=== PATIENT | female | born 1985 | race Caucasian/White ===

== ENCOUNTER 2024-03-10 05:36 | Day surgery (SDC) | payer SELFPAY, OTHER ==
--- NOTE | 2024-02-22 17:15 | PCM.HP.BLA ---
History and Physical Date of Admission: 03/10/24 HPI: The patient is a 39 year old female presenting for pre-operative visit. She is scheduled for total laparoscopic hysterectomy bilateral salpingectomy and cystoscopy, for menorrhagia and adenomyosis and chronic pelvic pain on 03/10/24. Procedure discussed along with risks, benefits and complications. Other alternatives discussed for management. Consent form signed? Yes. PAST MEDICAL HISTORY PAST MEDICAL HISTORY Diagnosis Date ? Hypoglycemia ? Uterine fibroid 2021 PAST SURGICAL HISTORY PAST SURGICAL HISTORY Procedure Laterality Date ? SECTION HX x3 CURRENT MEDICATIONS Current Outpatient Medications Medication Sig Dispense Refill ? tranexamic acid (LYSTEDA) 650 mg tablet Take 2 tablets by mouth three times a day as needed (heavy menstrual bleeding). 30 tablet 11 No current facility-administered medications for this visit. ALLERGIES: Patient has no known allergies. PERSONAL HISTORY: SOCIAL HISTORY Social History Tobacco Use ? Smoking status: Never ? Smokeless tobacco: Never Vaping Use ? Vaping status: Never Used Substance Use Topics ? Alcohol use: Not Currently ? Drug use: Never FAMILY HISTORY: FAMILY HISTORY History reviewed. No pertinent family history. REVIEW OF SYMPTOMS: GENERAL: denies fevers or chills ENDOCRINOLOGY: has not been on steroids Cardiology : denies palpitations or chest pain Respiratory: denies SOB or cough Hematology: denies history of prolonged bleeding or easy bruising or VTE Allergy: Denies history of personal or family history of allergy to anesthesia PHYSICAL EXAMINATION: VITALS: Blood pressure 116/68, pulse 88, resp. rate 16, height 162.6 cm (5' 4 ), weight 97.1 kg (214 lb), last menstrual period 09/04/2023. GENERAL: The patient is well nourished, well hydrated in no acute distress. , The patient is oriented to time, place, and person. NECK: Supple. No lynphadenopathy, normal thyroid, no thyromegaly. LUNGS: Clear to auscultation bilaterally. no wheezes, rhonchi or rales HEART: Regular rate and rhythm, Normal heart sounds, and No murmurs or gallops Pap and high-risk HPV were negative on 09/13/2023 Endometrial biopsy was benign on 09/13/2023 Pelvic ultrasound on 09/02/2023: Impression A anteverted uterus seen that measures 113 mm x 59 mm x 78 mm. The myometrium is suspicious of adenomyosis but no obvious fibroids are observed. The central endometrium complex measures 10.9 mm in combined thickness. No abnormal blood flow to suggest a polyp or focal endometrial pathology is observed within the endometrial complex. The contour of the endometrial cavity was normal on 3-D imaging. The left ovary is not visualized. The right ovary is normal appearing. Positive slide sign of right adnexa. No adnexal masses were observed. There is no free fluid visualized in the peritoneal cavity. Recommendations Ultrasound findings suggestive for adenomyosis. Clinical correlation is recommended. IMPRESSION: Chronic pelvic pain, adenomyosis and menorrhagia PLAN: The risks/benefits/alternatives and personal involved for the planned total laparoscopic hysterectomy with bilateral salpingectomy and cystoscopy were reviewed with the patient. Her questions were answered to her satisfaction and she desires to proceed. Consent was signed. I reviewed with her postop instructions and expectations. We reviewed that ovaries would remain unless an anticipated pathology arises at time of surgery. Postoperative prescriptions were sent. I have reviewed and updated past medical and surgical history, medications and allergies Assessment & Plan Assessment/Plan (1) Pelvic pain: (2) Adenomyosis: (3) Menorrhagia with regular cycle:
[2024-03-04 11:06] LABS: Internal QC Validated? YES +Cl - CLEAR BKGD; Pregnancy, Urine Negative Negative
[2024-03-10] VITALS (14 sets, daily range): BP systolic 114–136; BP diastolic 71–80; PULSE 78–95; RESP 16–18; TEMP 36.3–37; O2SAT 96–100; BMI 37.8
--- OUTSIDE RECORDS SUMMARY | 2024-03-10 05:38 | XMS RPT_ITS | CCD ---
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 Primary Care Unavailab KIERSTEN Stroud NP Attending Unavailab KYLEE Ireland Consulting Unavailable KIERSTEN MORALES NP Admitting Unavailab le PROVIDER, UNKNOWN Consulting Unavailable PROVIDER, UNKNOWN Consulting Unavailable PROVIDER, UNKNOWN Consulting Unavailable KYLEE MENDOZA MD Unavailable Michela Horn Unavailable Unavailable BERLIN Unavailable Unavailable OBGYN, GENERAL Unavailable Unavailable JUSTINA ARECHIGA, JORGE Unavailable HARDY MENDOZA MD Unavailable Jena AGUILLON, Margie Unavailable Unavailable MAGGI ARECHIGA, DIAMANTE Hwang Unavailable [phone] KIERSTEN ELLER Unavailable Leo HORN MD Unavailable NEETU RUIZ Unavailable Unavailable ARY GEORGE Unavailable Unavailable NICKY ARECHIGA, RISHI Harrington Unavailable [phone] Jaiden AGUILLON, Rufina Unavailable Unavaila ble Unavailable Unavailable Kiersten Morales CNP Unavailable FRANCISCO EARLY Attending Unavailable FRANCISCO EARLY Referring Unavailable FRANCISCO EARLY Attending Unavailable FRANCISCO EARLY Referring Unavailable KIERSTEN MORALES Referring Corrina vailable FRANCISCO EARLY Attending Unavailable Medications Current Medications Medication Drug Class(es) Dates Sig (Normalized) Sig (Original) ibuprofen 600 mg oral tablet (1 source) Nonsteroidal Anti-inflammatory Drug Start: 02-22-2024 take 1 tablet by mouth every six hours as needed ibuprofen (MOTRIN) 600 mg tablet Take 1 tablet by mouth every 6 hours as needed for pain. FOR PAIN. 40 tablet 1 02/22/2024 Active ondansetron 4 mg oral tablet (6 sources) Serotonin-3 Receptor Antagonist Start: 02-22-2024 take 1 tablet by mouth every eight hours as needed ondansetron (ZOFRAN) 4 mg tablet Take 1 tablet by mouth every 8 hours as needed for nausea/vomiting. 20 tablet 02/22/2024 Active Start: 01-15-2014 End: 01-22-2014 ZOFRAN ODT, 4MG (Oral Tablet Dispersible) ; 1 (one) Tablet 1 tablet sublingual every 6 hours as needed for na for 7 days Quantity: 10 {Tablet} Refills: 0 Ordered: 15-Jan-2014 MD Leo HORN Start: 15-Jan-2014 End: 22-Jan-2014 Status: Inactive Comments: Medication taken as needed. Comment on above: Medication taken as needed. oxyCODONE hydrochloride 5 mg oral tablet (1 source) Opioid Agonist Start: End: take 1 tablet by mouth every eight hours as needed for pain oxyCODONE IR (ROXICODONE) 5 mg immediate release tablet Indications: Postoperative pain Take 1 tablet by mouth every 8 hours as needed for pain for up to 5 days. 8 tablet 02/22/2024 02/27/2024 Active tranexamic acid 650 mg oral tablet (4 sources) Antifibrinolytic Agent Start: take 2 tablets by mouth every eight hours as needed tranexamic acid (LYSTEDA) 650 mg tablet Take 2 tablets by mouth three times a day as needed (heavy menstrual bleeding). 30 tablet 11 09/13/2023 Active Completed/Discontinued Medications Medication Drug Class(es) Dates Sig (Normalized) Sig (Original) ALPRAZolam 0.5 mg oral tablet (5 sources) Benzodiazepine Start: 01-12-2014 End: 01-17-2014 take 1-2 tablets by mouth once daily as needed XANAX, 0.5MG (Oral Tablet) ; 1-2 Tablet Tablet daily as needed for 10 days Quantity: 10 {Tablet} Refills: 1 Ordered: 17-Jan-2014 MD Leo HORN Start: 12-Jan-2014 End: 17-Jan-2014 Status: Inactive Comments: Medication taken as needed. Comment on above: Medication taken as needed. amoxicillin 500 mg oral capsule (5 sources) Penicillin-class Antibacterial Start: 07-24-2019 End: 08-03-2019 take 1 tablet by mouth three times daily Amoxicillin 500 MG Oral Capsule ; 1 (one) Tablet Tablet three times daily for 10 days Quantity: 30 {Capsule} Refills: 0 Ordered: 21-Sep-2019 HENNA Hwang Start: 24-Jul-2019 End: 03-Aug-2019 Status: Inactive Comments: medication to be dispensed in office Comment on above: medication to be dis pensed in office amoxicillin 875 mg / clavulanate 125 mg oral tablet (5 sources) Penicillin-class Antibacterial Start: 01-22-2012 End: 01-29-2012 take 1 tablet by mouth twice daily AUGMENTIN, 875-125MG (Oral Tablet) ; 1 (one) Tablet two times daily for 7 days Quantity: 14 {Tablet} Refills: 0 Ordered: 14-Jun-2012 MD RISHI SAUNDERS Start: 22-Jan-2012 End: 29-Jan-2012 Status: Inactive azithromycin 250 mg oral tablet (5 sources) Macrolide Antimicrobial Start: 03-22-2010 End: 07-18-2010 AZITHROMYCIN, 250MG (Oral Tablet) ; 1 Tablet daily for 0 days Quantity: 6 {Tablet} Refills: 0 Ordered: 18-Jul-2010 HENNA Bella Start: 22-Mar-2010 End: 18-Jul-2010 Status: Inactive Comments: take two tablets day one and then one tablet daily for 4 days Comment on above: take two tablets day one and then one tablet daily for 4 days cephalexin 500 mg oral capsule (5 sources) Cephalosporin Antibacterial Start: 09-02-2021 End: 03-12-2022 take 1 capsule by mouth four times daily Cephalexin 500 MG Oral Capsule ; 1 (one) Capsule four times daily for 0 days Quantity: 40 {Capsule} Refills: 0 Ordered: 12-Mar-2022 HENNA Hwang Start: 02-Sep-2021 End: 12-Mar-2022 Status: Inactive Comments: medication to be dispensed in office Comment on above: medication to be dis pensed in office clonazePAM 0.5 mg oral tablet (5 sources) Benzodiazepine Start: 08-20-2014 End: 07-24-2019 KlonoPIN 0.5 MG Oral Tablet ; 1 (one) Tablet Tablet prn anxiety during periods. for 0 days Quantity: 90 {Tablet} Refills: 0 Ordered: 24-Jul-2019 HENNA Hwang Start: 20-Aug-2014 End: 24-Jul-2019 Status: Inactive dextromethorphan hydrobromide 2 mg/ml / guaiFENesin 20 mg/ml oral solution (5 sources) Uncompetitive W-whzqpn-S-aspartat e Receptor Antagonist, Sigma-1 Agonist Start: 07-27-2019 End: 08-15-2021 take 5 mL by mouth every four to six hours as needed guaiFENesin-DM 100-10 MG/5ML Oral Syrup ; 5 Milliliter every 4-6 hours as needed for cough for 0 days Quantity: 120 {Milliliter} Refills: 0 Ordered: 15-Aug-2021 HENNA Bella Start: 27-Jul-2019 End: 15-Aug-2021 Status: Inactive Comments: Medication taken as needed. medication to be dispensed in office Comment on above: Medication taken as needed. medication to be dispensed in office meclizine hydrochloride 25 mg oral tablet (5 sources) Antiemetic Start: 07-19-2015 End: 07-24-2019 take 1 tablet by mouth three times daily as needed, then take 2 tablets by mouth three times daily as needed Meclizine HCl 25 MG Oral Tablet ; one Tab three times a day, as needed for 7 days Quantity: 21 {Tablet} Refills: 2 Ordered: 24-Jul-2019 HENNA Hwang Start: 19-Jul-2015 End: 24-Jul-2019 Status: Inactive Comments: Medication taken as needed. may increase or decrease dose as needed up to 2 pills three times a day. Comment on above: Medication taken as needed. may increase or decrease dose as needed up to 2 pills three times a day. norethindrone acetate 5 mg oral tablet (4 sources) Start: 08-18-2023 End: 01-07-2024 take 0.5 tablet by mouth once daily norethindrone (AYGESTIN) 5 mg tablet Take 0.5 tablets by mouth once daily. 15 tablet 1 08/18/2023 01/07/2024 Discontinued Comment on above: Take 0.5 tablets by mouth once daily. sertraline 25 mg oral tablet (5 sources) Serotonin Reuptake Inhibitor Start: 01-17-2014 End: 08-20-2014 take 1 tablet by mouth once daily SERTRALINE HCL, 25MG (Oral Tablet) ; 1 (one) Tablet Tablet daily for 30 days Quantity: 30 {Tablet} Refills: 3 Ordered: 20-Aug-2014 HENNA Hwang Start: 17-Jan-2014 End: 20-Aug-2014 Status: Inactive Problems Active Problems Problem Classification Problem Date Documented Da te Episodic/Chronic Acute bronchitis (5 sources) Acute bronchitis 03-22-2010 Episodic Administrative/social admission (11 sources) Patient encounter status; Translations: [Counseling, unspecified] 07-23-2023 Episodic Anxiety disorders (20 sources) Anxiety attack ; Translations: [Panic disorder [episodic paroxysmal anxiety]] 08-20-2014 Chronic Benign neoplasm of uterus (15 sources) Uterine leiomyoma; Translations: [Leiomyoma of uterus, unspecified] 07-23-2023 Episodic Comment on above: noted on CT, not on US at OB office Conditions associated with dizziness or vertigo (10 sources) Vestibular nerve disorder; 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, unspecified ear] 07-19-2015 Episodic Endometriosis (1 source) Uterine adenomyosis; Translations: [Adenomyosis] 02-22-2024 Chronic Heart valve disorders (5 sources) Mitral valve prolapse 01-15-2014 Chronic Immunizations and screening for infectious disease (6 sources) Requires diphtheria, tetanus and pertussis vaccination; Translations: [Encounter for immunization] 01-22-2012 Episodic Menstrual disorders (9 sources) Dysmenorrhea; Translations: [Dysmenorrhea, unspecified] Onset: 09-02-2023 07-18-2010 Chronic Open wounds of extremities (5 sources) Open wound of foot; Translations: [Unspecified open wound, unspecified foot, initial encounter] 01-22-2012 Episodic Other female genital disorders (5 sources) Vaginal bleeding; Translations: [Abnormal uterine and vaginal bleeding, unspecified] 07-18-2010 Chronic Other gastrointestinal disorders (1 source) Constipation, unspecified; Translations: [Constipation, unspecified] Onset: 03-13-2022 Episodic Other gastrointestinal disorders (10 sources) Acute constipation; Translations: [Constipation, unspecified] 03-13-2022 Episodic Other injuries and conditions due to external causes (10 sources) Local infection of wound; Translations: [Other injury of unspecified body region, initial encounter] 03-12-2022 Episodic Other nervous system disorders (1 source) Other chronic pain; Translations: [Chronic pelvic pain in female] Onset: 09-02-2023 Chronic Other nervous system disorders (1 source) Postoperative pain ; Translations: [Other acute postprocedural pain] 02-22-2024 Episodic Other screening for suspected conditions (not mental disorders or infectious disease) (1 source) Abnormal findings on diagnostic imaging of other specified body structures; Translations: [Abnormal findings on diagnostic imaging of other specified body structures] Onset: 03-13-2022 Chronic Other skin disorders (15 sources) Multiple skin tags; Translations: [Other hypertrophic disorders of the skin] 03-12-2022 Episodic Other upper respiratory infections (5 sources) Acute bacterial pharyngitis; Translations: [Acute pharyngitis due to other specified organisms] 07-24-2019 Episodic Residual codes; unclassified (5 sources) Viral syndrome; Translations: [Other general symptoms and signs] 07-27-2019 Episodic Skin and subcutaneous tissue infections (10 sources) Cellulitis and abscess of lower limb; Translations: [Cellulitis of unspecified part of limb] 01-26-2012 Episodic Superficial injury; contusion (5 sources) Foreign body of foot; Translations: [Superficial foreign body, unspecified foot, initial encounter] 01-22-2012 Episodic Unclassified (5 sources) Abdominal Pain, Female - Symptoms include abdominal pain, while symptoms do not include nausea, vomiting or diarrhea. The pain is located in the left lower quadrant. The pain radiates to the left flank. Onset was 18 month(s) ago (intermittent). Associated symptoms do not include anorexia, weight loss, jaundice or hematuria. Note for Abdominal pain : C/O constipation and some blood when constipated. See US and CT Results from 2021. 07-23-2023 Past or Other Problems Problem Classification Problem Date Documented Date Episodic/Chronic Abdominal pain (20 sources) Left lower quadrant pain; Translations: [Chronic pelvic pain of female] Onset: 03-13-2022 Episodic Deficiency and other anemia (5 sources) Deficiency and other anemia 07-19-2010 Unclassified (5 sources) !Patient notification of lab results - LAVERN Das. The test(s) that you had done were/was a CT scan. Your tests showed the following abnormalities: concern for fibroids and a large amount of stool . You should call our office to schedule a referral and if you have any questions. Please follow up as scheduled. Note for !Patient notification of lab results : Based on your CT, I would first clear your constipation. If this doesn't help, I would suggest going to [facility] for the concern for fibroids. These are non-cancerous tumors but they can cause discomfort and sometimes need removed. For the constipation I suggest miralax or warmed prune juice. Thanks! 03-13-2022 Unclassified (5 sources) Abdominal Pain, Female - Symptoms include abdominal pain, while symptoms do not include nausea, vomiting, diarrhea or vaginal bleeding. The pain is located in the left lower quadrant. The pain radiates to the back. The patient describes the pain as dull. Onset was week(s) ago. Onset followed none (pt has history of C Sections). The symptoms occur frequently. Symptoms are exacerbated by eating. Associated symptoms do not include fever, anorexia or dysuria. 03-12-2022 Unclassified (5 sources) Skin lesion - Note for Skin lesion : Pt. had a skin tag removed from under her right arm 5 days ago. It is painful and still oozing a bit on the bandaid. She is here to follow up. 09-02-2021 Unclassified (5 sources) Skin lesion - The skin lesion is located on the face (left eyelid) and the trunk (right armpit). 08-29-2021 Unclassified (5 sources) Skin lesion - The skin lesion appeared gradually and has been occurring for years. The skin lesion is characterized as raised above the skin. The skin lesion is located on the face (left eyelid). Note for Skin lesion : And one in the right axilla. 08-15-2021 Unclassified (5 sources) !Patient notification of lab results - Dr. Mendoza. The test(s) that you had done were/was a CBC (checks for anemia and infection) (The results are suggestive of a viral infection. I advise rest and fluids. Please let us know how you are doing by next week.). You should call our office if you have any questions. 07-28-2019 Unclassified (5 sources) Cough - The onset of the cough has been acute and has been occurring in a persistent pattern for days. The course has been constant. The cough is characterized as dry. The symptoms have been associated with body aches and sore throat (improved). Note for Cough : seen 07-24-19 and treated with Amoxicillin. Sorethroat improving. c/o increased weakness and decreased appetite. 07-27-2019 Unclassified (5 sources) Sore throat - The onset of the sore throat has been acute and has been occurring for weeks (3 weeks but worse x 2 days.). The course has been worsening. The symptoms have been associated with change in voice and cough (slight). 07-24-2019 Unclassified (5 sources) Vomiting - Symptoms include vomiting. Onset was 3 hour(s) ago. Associated symptoms include weakness. Note for Vomiting : pt gets low sugars at times. Today in office 107. 07-19-2015 Unclassified (5 sources) Dizziness - The onset of the dizziness has been acute and has been occurring for 1 month (worse last couple days. Pt having period now.). The symptoms have been associated with headache and nausea. Note for Dizziness : worries about low sugar. Drinking orange juice helps but gives her a stomachache. Today sugar is 93. Pt has been treated for anxiety/depression in the past with zoloft without help.. 08-20-2014 Unclassified (5 sources) recheck - other illness (anxiety. On Zoloft daily and Klonopin 1/2 tab bid.). Note for recheck : Last visit 2 weeks ago. 01-26-2014 Unclassified (2 sources) Transition into care - The patient is transitioning into care from an emergency room ([facility]) . 01-15-2014 Unclassified (2 sources) [ADDITIONAL REASON] Abdominal pain - Note for Abdominal pain : Continues with Abd pain and nausea. Was in ER yesterday - See ER record. concerned about Results of CT 01-15-2014 Unclassified (5 sources) !Patient notification of lab results 1 - Justina. Note for !Patient notification of lab results 1 : Racheal, your labs look good. 01-14-2014 Unclassified (5 sources) Muscle twitching - Pt c/o muscle twitching and chest tightness. She said she has felt it before. It happened last night. She also felt sick to her stomach after the episode. She denies any pain. 01-12-2014 Unclassified (5 sources) Injury - The date of the injury was on 01/21/12. The injury is described as being located in the foot (left). Note for Injury : drain placed on 01/22/12. Pt feeling good. 01-26-2012 Unclassified (5 sources) LACERATION - The injury occurred on - Date: 01-21-12. The occurrence was sudden following an incident at home (stepped on cut off quezada.) . The patient's tetanus immunization is not up to date, and the date of most recent tetanus booster is .. Note for Laceration : laceration on arch of right foot. 01-22-2012 Unclassified (5 sources) Vaginal bleeding - The bleeding has been occurring for 4 days. Note for Vaginal bleeding : MENSES WAS LATE WITH CLOTS. CONCERNED ABOUT BEING . HAS A NEG BLOOD 07-18-2010 Unclassified (5 sources) Ear pain - The pain has been occurring in an intermittent pattern for 5 days. The course has been constant. The pain is felt in the right ear. The symptoms have been associated with chills, fever, sinus problems (rhin clear small cough, dry) and sore throat, while the symptoms have not been associated with decreased hearing (sounds loud). 03-22-2010 Unclassified (3 sources) Abdominal pain - Note for Abdominal pain : Continues with Abd pain and nausea. Was in ER yesterday - See ER record. concerned about Results of CT 01-15-2014 Unclassified (3 sources) [ADDITIONAL REASON] Transition into care - The patient is transitioning into care from an emergency room ([facility]) . 01-15-2014 Results Test Name Value Interpretation Reference Range Facility [facility] 02-22-2024 CNOV Office Visit (OBGYWM) RACHEAL URBAN ([id number]) 1985 F Date Time Provider Department 02/22/24 2:50 PM FRANCISCO EARLY OBGYWM During your visit today, we recorded the following information about you: Pulse Respiration Blood pressure Weight 88/minute 16/minute 116/68 97.1 kg Height 1.626 m Francisco Early MD 02/22/2024 5:15 PM Signed Pre-Op History and Physical HPI: The patient is a 39 year old female presenting for pre-operative visit. She is scheduled for total laparoscopic hysterectomy bilateral salpingectomy and cystoscopy, for menorrhagia and adenomyosis and chronic pelvic pain on 03/10/24. Procedure discussed along with risks, benefits and complications. Other alternatives discussed for management. Consent form signed? Yes. PAST MEDICAL HISTORY Diagnosis Date Hypoglycemia Uterine fibroid 2021 PAST SURGICAL HISTORY Procedure Laterality Date SECTION HX x3 Current Outpatient Medications Medication Sig Dispense Refill tranexamic acid (LYSTEDA) 650 mg tablet Take 2 tablets by mouth three times a day as needed (heavy menstrual bleeding). 30 tablet 11 No current facility-administere d medications for this visit. ALLERGIES: Patient has no known allergies. PERSONAL HISTORY: Social History Tobacco Use Smoking status: Never Smokeless tobacco: Never Vaping Use Vaping status: Never Used Substance Use Topics Alcohol use: Not Currently Drug use: Never FAMILY HISTORY: History reviewed. No pertinent family history. REVIEW OF SYMPTOMS: GENERAL: denies fevers or chills ENDOCRINOLOGY: has not been on steroids Cardiology : denies palpitations or chest pain Respiratory: denies SOB or cough Hematology: denies history of prolonged bleeding or easy bruising or VTE Allergy: Denies history of personal or family history of allergy to anesthesia PHYSICAL EXAMINATION: VITALS: Blood pressure 116/68, pulse 88, resp. rate 16, height 162.6 cm (5' 4 ), weight 97.1 kg (214 lb), last menstrual period 09/04/2023. GENERAL: The patient is well nourished, well hydrated in no acute distress. , The patient is oriented to time, place, and person. NECK: Supple. No lynphadenopathy, normal thyroid, no thyromegaly. LUNGS: Clear to auscultation bilaterally. no wheezes, rhonchi or rales HEART: Regular rate and rhythm, Normal heart sounds, and No murmurs or gallops Pap and high-risk HPV were negative on 09/13/2023 Endometrial biopsy was benign on 09/13/2023 Pelvic ultrasound on 09/02/2023: Impression A anteverted uterus seen that measures 113 mm x 59 mm x 78 mm. The myometrium is suspicious of adenomyosis but no obvious fibroids are observed. The central endometrium complex measures 10.9 mm in combined thickness. No abnormal blood flow to suggest a polyp or focal endometrial pathology is observed within the endometrial complex. The contour of the endometrial cavity was normal on 3-D imaging. The left ovary is not visualized. The right ovary is normal appearing. Positive slide sign of right adnexa. No adnexal masses were observed. There is no free fluid visualized in the peritoneal cavity. Recommendations Ultrasound findings suggestive for adenomyosis. Clinical correlation is recommended. IMPRESSION: Chronic pelvic pain, adenomyosis and menorrhagia PLAN: The risks/benefits/alter natives and personal involved for the planned total laparoscopic hysterectomy with bilateral salpingectomy and cystoscopy were reviewed with the patient. Her questions were answered to her satisfaction and she desires to proceed. Consent was signed. I reviewed with her postop instructions and expectations. We reviewed that ovaries would remain unless an anticipated pathology arises at time of surgery. Postoperative prescriptions were sent. I have reviewed and updated past medical and surgical history, medications and allergies Francisco Early M.D. Francisco Early MD 02/22/2024 5:15 PM Signed Racheal Urban is a 39 year old female who presents for problem visit for AUB. HPI: 39-year-old female who is completed childbearing presents today complaining of abnormal uterine bleeding. She states her last 2 menses have not been as heavy. She does have some cramping with her menses. OB History T3 L3 SAB3 IAB0 Ectopic0 Multiple0 Live Births3 Thermostat Machine Tender History LMP: 09/04/2023 (Exact Date), Having periods Age at Menarche: Age at First : Age at Menopause: Thermostat Machine Tender History Comments: Sexual Activity: Yes; Male Contraception: No contraception data on record PAST MEDICAL HISTORY Diagnosis Date Hypoglycemia Uterine fibroid 2021 PAST SURGICAL HISTORY Procedure Laterality Date SECTION HX x3 History reviewed. No pertinent family history. Social History Tobacco Use Smoking status: Never Smokeless tobacco: Never Vaping Use Vaping status: Never Used Sub (more content not included)... [facility] HIST[facility] PHYSICALon 4 HISTORY PHYSICAL HNO ID: [id number] Author: FRANCISCO EARLY MD Service: ? Author Type: Physician Type: H&P Filed: 02/22/2024 17:15 Note Text: Pre-Op History and Physical HPI: The patient is a 39 year old female presenting for pre-operative visit. She is scheduled for total laparoscopic hysterectomy bilateral salpingectomy and cystoscopy, for menorrhagia and adenomyosis and chronic pelvic pain on 03/10/24. Procedure discussed along with risks, benefits and complications. Other alternatives discussed for management. Consent form signed? Yes. PAST MEDICAL HISTORY Diagnosis Date Hypoglycemia Uterine fibroid 2021 PAST SURGICAL HISTORY Procedure Laterality Date SECTION HX x3 Current Outpatient Medications Medication Sig Dispense Refill tranexamic acid (LYSTEDA) 650 mg tablet Take 2 tablets by mouth three times a day as needed (heavy menstrual bleeding). 30 tablet 11 No current facility-administere d medications for this visit. ALLERGIES: Patient has no known allergies. PERSONAL HISTORY: Social History Tobacco Use Smoking status: Never Smokeless tobacco: Never Vaping Use Vaping status: Never Used Substance Use Topics Alcohol use: Not Currently Drug use: Never FAMILY HISTORY: History reviewed. No pertinent family history. REVIEW OF SYMPTOMS: GENERAL: denies fevers or chills ENDOCRINOLOGY: has not been on steroids Cardiology : denies palpitations or chest pain Respiratory: denies SOB or cough Hematology: denies history of prolonged bleeding or easy bruising or VTE Allergy: Denies history of personal or family history of allergy to anesthesia PHYSICAL EXAMINATION: VITALS: Blood pressure 116/68, pulse 88, resp. rate 16, height 162.6 cm (5' 4 ), weight 97.1 kg (214 lb), last menstrual period 09/04/2023. GENERAL: The patient is well nourished, well hydrated in no acute distress. , The patient is oriented to time, place, and person. NECK: Supple. No lynphadenopathy, normal thyroid, no thyromegaly. LUNGS: Clear to auscultation bilaterally. no wheezes, rhonchi or rales HEART: Regular rate and rhythm, Normal heart sounds, and No murmurs or gallops Pap and high-risk HPV were negative on 09/13/2023 Endometrial biopsy was benign on 09/13/2023 Pelvic ultrasound on 09/02/2023: Impression A anteverted uterus seen that measures 113 mm x 59 mm x 78 mm. The myometrium is suspicious of adenomyosis but no obvious fibroids are observed. The central endometrium complex measures 10.9 mm in combined thickness. No abnormal blood flow to suggest a polyp or focal endometrial pathology is observed within the endometrial complex. The contour of the endometrial cavity was normal on 3-D imaging. The left ovary is not visualized. The right ovary is normal appearing. Positive slide sign of right adnexa. No adnexal masses were observed. There is no free fluid visualized in the peritoneal cavity. Recommendations Ultrasound findings suggestive for adenomyosis. Clinical correlation is recommended. IMPRESSION: Chronic pelvic pain, adenomyosis and menorrhagia PLAN: The risks/benefits/alter natives and personal involved for the planned total laparoscopic hysterectomy with bilateral salpingectomy and cystoscopy were reviewed with the patient. Her questions were answered to her satisfaction and she desires to proceed. Consent was signed. I reviewed with her postop instructions and expectations. We reviewed that ovaries would remain unless an anticipated pathology arises at time of surgery. Postoperative prescriptions were sent. I have reviewed and updated past medical and surgical history, medications and allergies Francisco Early M.D. [facility] RACHEAL URBAN ([id number]) 1985 F Date Time Provider Department 01/05/24 FRANCISCO EARLY OBGYWM During your visit today, we recorded the following information about you: Kailyn Molina 01/05/2024 4:39 PM Signed Pt called ready to schedule her hysterectomy for sometime in February with Dr. Early. Arianna Stover RN 01/05/2024 4:49 PM Signed Patient will need a surgery sheet. See previous phone note on 09/21/23. HENNA Oshea Rebecca L, MD 01/07/2024 11:47 AM Signed NEed surgery sheet. MD Jolanta Aviles Lindsey, RN 01/07/2024 12:01 PM Signed Surgery sheet to provider to fill out. HENNA Oshea Rebecca L, MD 01/07/2024 1:33 PM Signed completed. MD Jolanta Aviles Lindsey, RN 01/07/2024 1:49 PM Signed Surgery sheet to outpatient scheduler. Arianna Stover RN Allergies As of Date: 01/05/2024 (No Known Allergies) Date Reviewed: 09/13/2023 Reviewed by: Josie Alfred MA - Fully Assessed Reason for Visit: schedule procedure [Other] Prescriptions as of 01/07/2024 - tranexamic acid (LYSTEDA) 650 mg tablet Take 2 tablets by mouth three times a day as needed (heavy menstrual bleeding). Problem List As Of Date: 01/05/2024 (None) Medications Discontinued During This Encounter Prescriptions - norethindrone (AYGESTIN) 5 mg tablet (Discontinued) Reported on 09/13/2023 Encounter Status:Closed by [facility]07[facility]OB[facility]WM[facility] RACHEAL URBAN ([id number]) 1985 F Date Time Provider Department 09/21/23 FRANCISCO EARLY OBGYWM During your visit today, we recorded the following information about you: Rosalind Estevez 09/21/2023 4:58 PM Signed Patient called for status update on biopsy results. Please contact patient to review. Janine Mir RN 09/21/2023 5:00 PM Signed Patient had EMB 09/12. Pap/HPV still in process. HENNA Mills Rebecca L, MD 09/22/2023 9:22 AM Signed Biopsy benign. I was waiting for the pap to call her. We will contact her if anything comes back abnormal> Has she decided how she would like to proceed (surgery or try TXA and monitor for now? ) MD Clarke Aviles Trisha, RN 09/22/2023 10:04 AM Signed Left message for patient to call office. HENNA Mills Jennifer, RN 09/22/2023 12:00 PM Signed Patient notified. She would like to proceed with surgery, but not until the week of February. Do you want a surgery sheet this far in advance? HENNA Quevedo Rebecca L, MD 09/22/2023 12:07 PM Signed Tell her to call back mid December to request to have it scheduled in Feb. Thanks! Francisco Early MD Allergies As of Date: 09/21/2023 (No Known Allergies) Date Reviewed: 09/13/2023 Reviewed by: Josie Alfred MA - Fully Assessed Reason for Visit: Results [95] Prescriptions as of 09/22/2023 - tranexamic acid (LYSTEDA) 650 mg tablet Take 2 tablets by mouth three times a day as needed (heavy menstrual bleeding). - norethindrone (AYGESTIN) 5 mg tablet Take 0.5 tablets by mouth once daily. Problem List As Of Date: 09/21/2023 (None) Encounter Status:Closed by KAILYN LOPES on 09/22/23 [facility] CNOVon 09-13-2023 CNOV Office Visit (OBGYWM) RACHEAL URBAN ([id number]) 1985 F Date Time Provider Department 09/13/23 11:10 AM FRANCISCO EARLY OBGYWM During your visit today, we recorded the following information about you: Blood pressure Weight Last Period 132/78 97.1 kg 09/04/23 Francisco Early MD 09/13/2023 12:16 PM Signed Racheal Urban is a 38 year old female who presents for problem visit for f/u AUB. Last menses was heavy and crampy, last 2 before that were better. Didn't take the progestin- norethindrone b/c taking a natural progestin supplement. The 2nd day fo this last 5 day menses was the worst. Didn't take any medication. She states the pain is not the main concern last 3 months. More the heavy bleeding. 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 Social History Tobacco Use Smoking status: Never Smokeless tobacco: Never Vaping Use Vaping Use: Never used Substance Use Topics Alcohol use: Not Currently Drug use: Never Current Outpatient Medications Medication Sig norethindrone (AYGESTIN) 5 mg tablet Take 0.5 tablets by mouth once daily. (Patient not taking: Reported on 09/13/2023) No current facility-administere d medications for this visit. Allergies As of Date: 09/13/2023 (No Known Allergies) Fully Assessed 09/13/2023 REVIEW OF SYSTEMS Abdomen: No bloating, early satiety, indigestion, or increased flatulence. No abdominal pain, nausea, vomiting, diarrhea, or constipation. Bladder: No dysuria, gross hematuria, urinary frequency, urinary urgency, or incontinence. Allergies and current medication updated:Yes EXAM: BP 132/78 Wt 214 lb (97.1kg) LMP 09/04/2023 GENERAL: pleasant, female in no apparent distress PELVIC: external genitalia normal, normal Bartholin's glands, urethra, Biehle's glands, no vulvar lesions, no cervical lesions, good vaginal support, physiologic discharge present, normal appearing perineal body and perianal region BIMANUAL: uterus normal size, shape and consistency, no adnexal masses, and boggy, mildly tender ASSESSMENT AND PLAN: Encounter Diagnosis ICD-10-CM 1. Menorrhagia with regular cycle N92.0 Adenomyosis- d/w her options. She is opposed to IUD and not interested in this at all. Not a good candidate for ablation due to pain and known adenomyosis. D/w her r/b/a to hysterectomy and that may not improve pain. Does not want hormones. D/w her could consider tranexamic acid. Desires to proced w/ EMB today and wants to consider other options. pap done as well today as hasn't been updated recently Would be TLH, bilateral salpingectomy and cystoscopy. Francisco Early MD Racheal is a 38 year old who presents today for an endometrial biopsy for abnormal uterine bleeding. test: negative UNIVERSAL PROTOCOL / SAFETY CHECKLIST Procedure to be Performed: EMB Sign In: A Moment of CARE was completed. Personnel directly involved with the procedure wore the appropriate PPE (Personal Protective Equipment). Patient/Surrogate Stated/Verified: PATIENT VERIFIED(optional for EMERGENT procedures): Patient name, Date of , Relevant allergies, and The intended procedure Time Out Communication: Intended patient and procedure match the source documents. Consent documented and matches the intended procedure. Relevant labs, photos, and/or imaging studies have been reviewed. No implant(s) inserted. Sign Out: SIGN OUT (optional for EMERGENT procedures): All specimen containers correctly labeled. All instruments, equipment, possible retained foreign bodies accounted for. Post-procedure follow-up management communicated and Plan of Care Visit completed when applicable. Francisco Early M.D. PROCEDURE: BIOPSY: Speculum placed into the vagina with excellent visualization of the cervix. Cervix cleaned with betadine. Anterior lip of cervix grasped with single toothed tenaculum. Uterus sounded to 9 cm. Pipelle inserted into the uterus without difficulty and endometrial biopsy obtained. Specimen labeled and sent to pathology. Procedure Summary: Patient tolerated procedure well. ASSESSMENT: abnormal uterine bleeding PLAN: Specimens labeled and sent to Pathology. Will notify patient of results in 1-2 weeks. Post-procedure instructions reviewed and written material given to the patient. Ok to leave message at given phone number for her to call us for results. MD Aubrie Aviles Tabatha, MA (more content not included)... Normal [facility] HIGH RISK HUMAN PAPILLOMA BONIFACIO (HPV), PCR FOR DETECTION AND GENOTYPINGon 09-13-2023 HPV 16 Ag Ql (Unsp spec) Negative Normal Negative for HPV DNA high risk type 16 by PCR [facility] Comment on above: Order Comment: Speci men Type: FLUID SPECIMENOrdering Facility: [facility] Address: [address] [place] [address] Performed By: #### L [id number], HPVHRT ####[facility] LAB[facility] [id number] [place] [address] [place] HPV 18 Ag Ql (Unsp spec) Negative Normal Negative for HPV DNA high risk type 18 by PCR [facility] Comment on above: Order Comment: Speci men Type: FLUID SPECIMENOrdering Facility: [facility] Address: [address] [place] [address] Performed By: #### L [id number], HPVHRT ####[facility] [id number] [place] [address] [place] HPV 31+33+35+39+45+51+52+56 +58+59+66+68 DNA MARCIA+probe Ql (Cvx) Negative for HPV DNA high risk types: 31,33,35,39,45,51,52 ,56,58,59,66,68 by PCR. Normal Negative for HPV DNA high risk types: 31,33,35,39,4 5,51,52,56,58 ,59,66,68 by PCR. [facility] Comment on above: Order Comment: Speci men Type: FLUID SPECIMENOrdering Facility: [facility] Address: [address] [place] [address] Performed By: #### L [id number], HPVHRT ####[facility] [id number] [place] [address] [place] PAP TESTon 09-13-2023 ADEQUACY Satisfactory for interpretation. Normal [facility] Comment on above: Order Comment: Speci men Type: FLUID SPECIMENOrdering Facility: [facility] Address: [address] [place] [address] Performed By: #### L [id number], HPVHRT ####[facility] [id number] [address] [address] [place] CLINICAL HISTORY, CYTOLOGY, LIBERAL ARTS AND HUMANITIES CHAIR Routine Exam Normal [facility] Comment on above: Order Comment: Speci men Type: FLUID SPECIMENOrdering Facility: [facility] Address: [address] [place] [address] Performed By: #### L [id number], HPVHRT ####[facility]IA [id number] [place] [id number] [place] HPV REFLEX Yes HPV [facility] Comment on above: Order Comment: Speci men Type: FLUID SPECIMENOrdering Facility: [facility] Address: [address] [place] [address] Performed By: #### L [id number], HPVHRT ####[facility] [id number] [place] [address] [place] INTERPRETATION, CYTOLOGY, LIBERAL ARTS AND HUMANITIES CHAIR Normal [facility] Comment on above: Order Comment: Speci men Type: FLUID SPECIMENOrdering Facility: [facility] Address: [address] [place] [address] Result Comment: Nega tive for intraepithelial lesion or malignancy. Performed By: #### L [id number], HPVHRT ####[facility] [id number] [place] [address] [place] LMP 09/04/2023 [facility] Comment on above: Order Comment: Speci men Type: FLUID SPECIMENOrdering Facility: [facility] Address: [address] [place] [address] Performed By: #### L [id number], HPVHRT ####[facility] [id number] [place] [id number] [place] PAP DISCLAIMER COMMENT The Pap Smear is a screening test for cervical cancer. False negative results occur with all screening tests, emphasizing the need for rescreening at recommended intervals, and clinical correlation. Normal [facility] Comment on above: Order Comment: Speci men Type: FLUID SPECIMENOrdering Facility: [facility] Address: [address] [place] [address] Performed By: #### L [id number], HPVHRT ####[facility] [id number] [place] PAP VIDEO GAME PROGRAMMER COMMENT This specimen has been analyzed by the ThinPrep Imaging System, an automated imaging and review system, which assists the laboratory in evaluating cells on ThinPrep Pap tests. Following automated imaging, selected alonzo from every slide are reviewed by a second class welder. Normal [facility] Comment on above: Order Comment: Speci men Type: FLUID SPECIMENOrdering Facility: [facility] Address: [address] [place] [address] Performed By: #### L [id number], HPVHRT ####[facility]CLIA [id number] [place] SURGICAL PATHOLOGYon 024 CASE REPORT Normal [facility] Comment on above: Order Comment: Speci men Type: TISSUE SPECIMEN [facility] Address: [address] [place] [address] Result Comment: [facility] Pathology Report Case: [id number] Authorizing Provider: Francisco Early MD Collected: 09/13/2023 01:03 PM Ordering Location: OB/Gynecology Received: 09/13/2023 03:55 PM Pathologist: Genesis Sauceda MD Specimen: Endometrium, Biopsy Performed By: #### S #### [facility] CLIA [id number] [address] [place] [address] OF [facility] Order Comment: Speci men Type: FLUID SPECIMENOrdering Facility: [facility] Address: [address] [place] [address] Result Comment: Gyne cologic Cytology Report Case: [id number] Authorizing Provider: Francisco Early MD Collected: 09/13/2023 01:03 PM Ordering Location: OB/Gynecology Received: 09/13/2023 03:56 PM First Screen: Aramouni, Carli, CT, ASCP Specimen: Pap Test, ThinPrep, Cervix Performed By: #### L [id number], HPVHRT ####[facility]IA [id number] [place] [address] [place] CLINICAL HISTORY menorrhagia with regular cycles Normal [facility] Comment on above: Order Comment: Speci men Type: TISSUE SPECIMEN [facility] Address: [address] [place] [address] Performed By: #### S #### [facility] CLIA [id number] [address] [place] [address] [place] FINAL DIAGNOSIS Normal [facility] Comment on above: Order Comment: Speci men Type: TISSUE SPECIMEN [facility] Address: [address] [place] [address] Result Comment: A. E ndometrium, biopsy: - Proliferative endometrium Performed By: #### S #### [facility] CLIA [id number] [address] [place] [address] [place] FINAL PERFORMING LAB Normal [facility] Comment on above: Order Comment: Speci men Type: TISSUE SPECIMEN [facility] Address: [address] [place] [address] Result Comment: Diag nostic interpretation performed at [facility], [address] [place] [address] CLIA# [id number] Rock Worker: Ajay Parra M.D. Performed By: #### S #### [facility] CLIA [id number] [address] [place] [address] [place] Order Comment: Speci men Type: FLUID SPECIMENOrdering Facility: [facility] Address: [address] [place] [address] Result Comment: Tech nical component, second class welder screening performed at [facility], [address] [place] [address] CLIA# [id number] Diagnostic interpretation performed at [facility], [address] [place] [address] CLIA# [id number] Rock Worker: Ajay Parra M.D. Performed By: #### L [id number], HPVHRT ####[facility] [id number] [place] [address] [place] GROSS DESCRIPTION Normal [facility] Comment on above: Order Comment: Speci men Type: TISSUE SPECIMEN [facility] Address: [address] [place] [address] Result Comment: A. E ndometrium, Biopsy Received in formalin are multiple lawton-brown, soft and feathery segments of tissue admixed with mucinous material and red-brown hemorrhagic material aggregating to 2.7 x 2.4 x 0.3 cm. Totally submitted in one cassette. Gross examination performed at [facility], [address] [place] [address] KK September 13, 2023 9:04 PM Performed By: #### S #### [facility] CLIA [id number] [address] [place] [address] [place] UA DIP,URINE HCG (POC)on Beta HCG ( test) Ql (U) Negative Negative [facility] Comment on above: Location:[facility], [address], [place], [address] Employee Development Manager (PO[employer]) Internal QC [place] [facility] Location:[facility], [address], [place], [address] [facility] POINT OF CARE [facility] US Pelvison 09-02-2023 [facility] CNOVon 08-18-2023 CNOV Office Visit (OBGYWM) RACHEAL URBAN ([id number]) 1985 F Date Time Provider Department 08/18/23 9:40 AM FRANCISCO EARLY OBGYWNikky During your visit today, we recorded the following information about you: Blood pressure Weight Last Period 116/78 96.2 kg 08/08/23 Francisco Early MD 08/18/2023 11:51 AM Signed Racheal Urban is a 38 year old female who presents for problem visit chronic pelvic pain for 2 year(s). HPI: Chronic pelvic pain which presented two years ago, pain occurs 1-2 weeks before period every month. Pain lasts first 2-3 days then improves. Uses Ibuprofen and magnesium cream to relieve pain with some relief. Pain is located in LLQ and radiating to left lower back. Describes pain as mix of shooting and aching pain, rated a 9/10 on worse day. Had a CT 2 years ago which found fibroid, ABD and Vaginal US 2 years ago was normal. , history of 3 sections. Worse days are right before she starts menses. Worse when sitting or lying down. Sometimes pain w/ intercourse. no pain w/ BM or urination. Has struggled w/ constipation, takes probiotics to help this. Has 2 small BMs a day. Had seen Dr. Horn's office in the past and had US there that we do not have access to at this time. Was told US was normal. no h/o abnormal pap smears. 3- cs and denies complications w/ those. OB History No obstetric history on file. 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 No pertinent family history. Social History Tobacco Use Smoking status: Never Smokeless tobacco: Never Vaping Use Vaping Use: Never used Substance Use Topics Alcohol use: Not Currently Drug use: Never No current outpatient medications on file. No current facility-administere d medications for this visit. Allergies As of Date: 08/18/2023 (No Known Allergies) Fully Assessed 08/18/2023 REVIEW OF SYSTEMS Abdomen: No bloating, early satiety, indigestion, or increased flatulence. No abdominal pain, nausea, vomiting, diarrhea, or constipation. Bladder: No dysuria, gross hematuria, urinary frequency, urinary urgency, or incontinence. Breast: No breast lumps, nipple d/c, overlying skin changes, redness or skin retraction. Expanded ROS: N/A Allergies and current medication updated:N/A EXAM: BP 116/78 Wt 212 lb (96.2kg) LMP 08/08/2023 GENERAL: pleasant, female in no apparent distress HABDOMEN: soft, non-tender, no hernia, and no masses PELVIC: external genitalia normal, normal Bartholin's glands, urethra, Biehle's glands, no vulvar lesions, no cervical lesions, good vaginal support, physiologic discharge present, normal appearing perineal body and perianal region BIMANUAL: no adnexal masses, non-tender, and uterus is enlarged, boggy, minimally mobile. May be attached anterior abdominal wall. No tenderness on the right side, left adnexal tenderness but no masses noted. ASSESSMENT AND PLAN: Encounter Diagnosis ICD-10-CM 1. Pelvic pain in female R10.2 Suspect possible adenomyosis, she has an enlarged uterus, check pelvic ultrasound. She also has heavy menses, check endometrial biopsy. Discussed with her may have endometriosis, if we strongly suspect this then I would recommend that she see a specialist to discuss surgery. However I recommend starting with conservative options. Recommend starting with oral progestin therapy. Consider Mirena intrauterine system. Return after ultrasound for EMB and to see how she is doing on the norethindrone and make a further plan. Patient and her are comfortable with this plan and their questions were answered to their satisfaction. Francisco Early MD Referring Provider: KIERSTEN MORALES [[id number]] Allergies As of Date: 08/18/2023 (No Known Allergies) Date Reviewed: 08/18/2023 Reviewed by: Francisco Early MD - Fully Assessed Reason for Visit: Pelvic Pain [282] Primary Visit Diagnosis:Menorrhagi a with regular cycle [N92.0] Other Visit Diagnosis:Chronic pelvic pain in female [R10.2, G89.29] Order(s):ENDOMETRIAL BIOPSY [[id number]] Order #: [id number] norethindrone (AYGESTIN) 5 mg tabletTake 0.5 tablets by mouth once daily.Disp: 15 tabletRfl: 1 PELVIC US WHI [[id number]] Order #: [id number]: 1 FUTURE Prescriptions as of 08/18/2023 - norethindrone (AYGESTIN) 5 mg tablet Take 0.5 tablets by mouth once daily. Problem List As Of Date: 08/18/2023 (None) Prescriptions ordered this encounter Disp Refills Start End NORETHINDRONE ACETATE 5 MG TABLET 15 t* 1 08/18/2023 Route: ORAL (more content not included)... [facility] No Panel Informationon 07-28 [facility], [place] [place]. No Panel InformationOrdered By: ARY GEORGE on 07-28-2023 [facility]. [facility] [employer] [facility] [place]. No Panel InformationOrdered By: ARY GEORGE on 07-23-2023 [facility], [facility]. [facility], [place]. CT ABDOMEN/PELVIS Won 2021 CT ABDOMEN/PELVIS [place] [address] Patient: RACHEAL URBAN Phone#: : [phone] Age: 37 Gender: F Pt. Type: Out Account: [id number] Location: [facility] Ordering: KIERSTEN MORALES Exam Date: 03/13/2022/9:12 Family Phys: KYLEE MENDOZA Charge Code: [id number] Physician: [place] Order #: [id number] Dose#: 19.4 mGy PROCEDURE: CT ABDOMEN/PELVIS WITH CONTRAST COMPARISON: None. INDICATIONS: Left lower quadrant pain. TECHNIQUE: After obtaining the patient's consent, CT images were created with non-ionic intravenous contrast material. All CT scans at this facility use dose modulation, iterative reconstruction, and/or weight based dosing when appropriate to reduce radiation dose to as low as reasonably achievable. IV CONTRAST: Omnipaque 350,80ml TOTAL DOSE: 19.4 CTDIvol(mGy) FINDINGS: LIVER: Normal. No enlargement, atrophy, abnormal density, or significant focal lesion. BILIARY: Normal. No visible dilatation or calcification. PANCREAS: Normal. No lesion, fluid collection, ductal dilatation, or atrophy. SPLEEN: Normal. No enlargement or focal lesion. KIDNEYS: Normal. No mass, obstruction, or calcification. ADRENALS: Normal. No mass or enlargement. AORTA/VASCULAR: Normal. No aneurysm or dissection. RETROPERITONEUM: Normal. No mass or adenopathy. BOWEL/MESENTERY: There is large volume stool retention.. No visible mass, obstruction, or bowel wall thickening. ABDOMINAL WALL: Normal. No mass or hernia. URINARY BLADDER: Normal. No visible focal wall thickening, lesion, or calculus. PELVIC NODES: Normal. No adenopathy. PELVIC ORGANS: Follicular cysts are present. The uterus is somewhat bulbous in contour. Possibility of anterior fibroid cannot be excluded. Continued Report - Page 2 of 2 Patient: RACHEAL URBAN Phone#: : [phone] Age: 37 Gender: F Pt. Type: Out Account: [id number] Location: [facility] Ordering: KIERSTEN MORALES Exam Date: 03/13/2022/9:12 Family Phys: KYLEE BROWND Charge Code: [id number] Physician: [place] Order #: [id number] Dose#: 19.4 mGy BONES: Degenerative changes of the spine are present most marked at the L5-S1 level. LUNG BASES: Normal. No visible pulmonary or pleural disease. OTHER: Negative. CONCLUSION: 1. Bulbous contour of the uterus. Fibroid cannot be excluded. 2. Large volume stool retention. Dictated by: Hilary Mcknight MD on 03/13/2022 at 9:50 Approved by: Hilary Mcknight MD on 03/13/2022 at 9:55 Normal [facility] .Auto Diffon 07-27-2019 Ammonia (P) [Mass/Vol] 0.30 10 3/mcL Normal 0.09-1.40 [facility] ([place]) Comment on above: Performed By: #### NAZANIN CHOI ANEU #### [address] [address] Basophils (Bld) [#/Vol] 0.00 10 3/mcL Normal 0.00-0.27 [facility] ([place]) Comment on above: Performed By: #### NAZANIN CHOI, ROSETTE #### [address] [address] Basophils/100 WBC (Bld) 0.7 % Normal 0.0-2.5 [facility] ([place]) Comment on above: Performed By: #### NAZANIN CHOI, ANEU #### [address] [address] Eosinophils (Bld) [#/Vol] 0.00 10 3/mcL Normal 0.00-0.65 [facility] ([place]) Comment on above: Performed By: #### NAZANIN CHOI, ANEU #### [address] [address] Eosinophils/100 WBC (Bld) 0.7 % Normal 0.0-6.0 [facility] ([place]) Comment on above: Performed By: #### NAZANIN CHOI, ANEU #### [address] [address] Lymphocytes (Bld) [#/Vol] 1.00 10 3/mcL Normal 0.90-4.32 [facility] ([place]) Comment on above: Performed By: #### NAZANIN CHOI, ANEU #### [address] [address] Lymphocytes/100 WBC (Bld) 36.0 % Normal 20.0-40.0 [facility] ([place]) Comment on above: Performed By: #### NAZANIN CHOI, ROSETTE #### [address] [address] Monocytes/100 WBC (Bld) 12.2 % Normal 2.0-13.0 [facility] ([place]) Comment on above: Performed By: #### NAZANIN CHOI ANEU #### [address] [address] Neutrophils/100 WBC (Bld) 50.4 % Normal 50.0-75.0 [facility] ([place]) Comment on above: Performed By: #### NAZANIN CHOI, ROSETTE #### [address] [address] .NEUABSon 07-27-2019 Neutrophils (Bld) [#/Vol] 1.30 10 3/mcL Low 2.25-8.10 [facility] ([place] Comment on above: Performed By: #### NAZANIN CHOI ANEU #### [address] [address] CBCon 07-27-2019 Erythrocyte distribution width (RBC) [Ratio] 13.2 % Normal 11.5 - 15.5 % [facility] Comment on above: Performed By: #### NAZANIN CHOI ANEU #### [place] [address] Hematocrit (Bld) [Volume fraction] 36.5 % Normal 34.0 - 46.0 % [facility] Comment on above: Performed By: #### NAZANIN CHOI ANEU #### [place] [id number] Hemoglobin (Bld) [Mass/Vol] 12.3 G/dL Normal 12.0 - 16.0 g/dL [facility] Comment on above: Performed By: #### NAZANIN CHOI, ROSETTE #### [place] [id number] MCH (RBC) [Entitic mass] 29.3 pg Normal 27.0 - 33.0 pg [facility] Comment on above: Performed By: #### NAZANIN CHOI ANEU #### [address] [address] MCHC (RBC) [Mass/Vol] 33.6 G/dL Normal 32.0 - 36.0 g/dL [facility].; [facility], [facility]. Comment on above: Performed By: #### NAZANIN CHOI, ROSETTE #### [place] [id number] MCV (RBC) [Entitic vol] 87.2 fL Normal 80.0 - 99.0 fL [facility].; [facility]. Comment on above: Performed By: #### NAZANIN CHOI ANEU #### [place] [address] Platelet mean volume (Bld) [Entitic vol] 7.9 fL Normal 6.6 - 10.5 fL [facility].; [facility]. Comment on above: Performed By: #### NAZANIN CHOI, ROSETTE #### [place] [id number] Platelets (Bld) [#/Vol] 209 10 3/mcL Normal 150-450 [facility] ([place]) Comment on above: Performed By: #### NAZANIN CHOI, ROSETTE #### [place] [id number] RBC (Bld) [#/Vol] 4.18 10 6/mcL Normal 4.10-5.30 [facility] ([place]) Comment on above: Performed By: #### NAZANIN CHOI, ROSETTE #### [place] [id number] WBC (Bld) [#/Vol] 2.60 10 3/mcL Low 4.50-10.80 [facility] ([place]) Comment on above: Performed By: #### NAZANIN CHOI, ANEU #### [address] [address] Laboratory - Hematology and Cell countson 07-27-2019 Platelets (Bld) [#/Vol] 209 {10^3/mcL} Normal 15 0 - 450 {10^3/mcL} [facility].; [facility], [facility] RBC (Bld) [#/Vol] 4.18 {10^6/mcL} Normal 4.10 - 5.30 {10^6/mcL} [facility].; [facility], [facility] WBC (Bld) [#/Vol] 2.60 {10^3/mcL} Abnormal 4.50 - 10.80 {10^3/mcL} [facility].; [facility], [facility] Laboratory - Microbiology an d Antimicrobial susceptibilityon 07-27-2019 FLUAV Ag IA Ql (Throat) Negative Normal E [facility]; [facility], [facility] Laboratory - Chemistry and C hemistry - challengeon 07-19-2015 Glucose Glucometer (BldC) [Moles/Vol] 107 mg/dL Abnormal 60 - 105 mg/dL [facility]; [facility], [facility] Laboratory - Chemistry and C hemistry - challengeon 08-20-2014 Glucose Glucometer (BldC) [Moles/Vol] 93 mg/dL Normal 60 - 105 mg/dL [facility]; [facility], [facility] Laboratory - Chemistry and C hemistry - challengeon 01-12-2014 Calcium [Mass/Vol] 9.2 mg/dL Normal 8.4 - 10. 1 mg/dL [facility]; [facility], [facility] Chloride [Moles/Vol] 105 mmol/L Normal 98 - 11 0 meq/L [facility]; [facility], [facility] CO2 [Moles/Vol] 25 mmol/L Normal 22 - 32 meq/L [facility].; [facility], [facility] Creatinine [Mass/Vol] 0.63 mg/dL Normal 0.50 - 1.20 mg/dL [facility]; [facility], [facility] Glucose [Mass/Vol] 100 mg/dL Normal 70 - 110 mg/dL [facility]; [facility] Potassium [Moles/Vol] 3.8 mmol/L Normal 3.5 - 5.0 meq/L [facility]; [facility] Sodium [Moles/Vol] 139 mmol/L Normal 136 - 145 meq/L [facility]; [facility] TSH Qn 1.18 m[IU]/L Normal 0.36 - 3.74 {mcIU/mL} [facility]; [facility] Urea nitrogen [Mass/Vol] 9.0 mg/dL Normal 8.0 - 22.0 mg/dL [facility]; [facility] Urea nitrogen/Creatinine [Mass ratio] 14.3 mg/mg Normal 10.0 - 22.0 [facility]; [facility] No Panel Informationon 01-12 Electrolyte Balance 9.0 meq/L Normal 4.0 - 15 .0 meq/L [facility]; [facility] Laboratory - Chemistry and C hemistry - challengeon 07-18-2010 Beta HCG ( test) Ql (U) Negative Normal [facility]; [facility] Vital Signs Date Time Vital Sign Value Performing Clinician Faci lity 02-22-2024 14:46-0400 Body height 162.6 cm Francisco Early MD Work Phone: [facility] 02-22-2024 14:46-0400 Body mass index (BMI) [Ratio] 36.73 kg/m2 Francisco Early MD Work Phone: [facility] 02-22-2024 14:46-0400 Body weight 97.07 kg Francisco Early MD Work Phone: [facility] 02-22-2024 14:46-0400 Diastolic blood pressure 68 mm[Hg] Francisco Early MD Work Phone: [facility] 02-22-2024 14:46-0400 Heart rate 88 /min Francisco Early MD Work Phone: [facility] 02-22-2024 14:46-0400 Respiratory rate 16 /min Francisco Early MD Work Phone: [facility] 02-22-2024 14:46-0400 Systolic blood pressure 116 mm[Hg] Francisco Early MD Work Phone: [facility] 09-13-2023 11:17-0400 Body weight 97.07 kg Francisco Early MD Work Phone: [facility] 09-13-2023 11:17-0400 Diastolic blood pressure 78 mm[Hg] Francisco Early MD Work Phone: [facility] 09-13-2023 11:17-0400 Systolic blood pressure 132 mm[Hg] Francisco Early MD Work Phone: [facility] 07-23-2023 15:53-0500 Body height 163.83 cm Margie Bella RN [facility], [facility].; [facility], [facility]. 07-23-2023 15:53-0500 Body mass index (BMI) [Ratio] 35.49 kg/m2 Margie Bella RN [facility], [facility]. 07-23-2023 15:53-0500 Body surface area Derived from formula 2.01 m2 Margie Bella RN [facility], [facility]. 07-23-2023 15:53-0500 Body temperature 97.6 [degF] Margie Bella RN [facility] [employer] [facility] [place]. Comment on above: Method: Oral 07-23-2023 15:53-0500 Body weight 95.26 kg Margie Bella RN [facility] [employer] [facility] [employer] [facility] 07-23-2023 15:53-0500 Diastolic blood pressure 74 mm[Hg] Margie Bella RN [facility] [employer] [facility] [place]. Comment on above: Patient Position: Sitting; Cuff Location : Left Arm; Cuff Size: Standard 07-23-2023 15:53-0500 Heart rate 82 /min Margie Bella RN [facility] Comment on above: Pattern: Regular 07-23-2023 15:53-0500 Inhaled oxygen concentration 21 % Margie Bella RN [facility] [employer] [facility] [employer] [facility] Comment on above: Room air 07-23-2023 15:53-0500 SaO2% (BldA) [Mass fraction] 98 % Margie Bella RN [facility] 07-23-2023 15:53-0500 Systolic blood pressure 106 mm[Hg] Margie Bella RN [facility] [employer] [facility] [employer] [facility] Comment on above: Patient Position: Sitting; Cuff Location : Left Arm; Cuff Size: Standard 03-12-2022 10:050400 Body height 163.83 cm Rufina Hwang RN [facility] 03-12-2022 10:05-0400 Body mass index (BMI) [Ratio] 32.45 kg/m2 Rufina Hwang RN [facility] 03-12-2022 10:05-0400 Body surface area Derived from formula 1.93 m2 Rufina Hwang RN [facility] [employer] [facility] [employer] [facility] 03-12-2022 10:05-0400 Body temperature 98.7 [degF] Rufina Hwang RN [facility] [employer] [facility] [employer] [facility] Comment on above: Method: Oral 03-12-2022 10:05-0400 Body weight 87.09 kg Rufina Hwang RN [facility] [employer] [facility] [employer] [facility] 03-12-2022 10:05-0400 Diastolic blood pressure 81 mm[Hg] Rufina Hwang RN [facility] [employer] [facility]. Comment on above: Patient Position: Sitting; Cuff Location : Left Arm; Cuff Size: Large 03-12-2022 10:05-0400 Heart rate 76 /min [facility]uf[facility], [facility]. Comment on above: Pattern: Regular 03-12-2022 10:05-0400 Inhaled oxygen concentration 21 % [facility]uf[facility].; [facility], [facility]. Comment on above: Room air 03-12-2022 10:05-0400 SaO2% (BldA) [Mass fraction] 96 % Rufina [facility].; [facility]. 03-12-2022 10:05-0400 Systolic blood pressure 124 mm[Hg] Rufina [facility] Comment on above: Patient Position: Sitting; Cuff Location : Left Arm; Cuff Size: Large 09-02-2021 08:41-0400 Body height 163.83 cm KYLEE MENDOZA MD Work Phone: [facility] [employer] [facility]. 09-02-2021 08:41-0400 Body mass index (BMI) [Ratio] 33.97 kg/m2 KYLEE MENDOZA MD Work Phone: [facility] [employer] [facility]. 09-02-2021 08:41-0400 Body surface area Derived from formula 1.97 m2 KYLEE MENDOZA MD Work Phone: [facility] [employer] [facility] 09-02-2021 08:41-0400 Body weight 91.17 kg KYLEE MENDOZA MD Work Phone: [facility] [employer] [facility] 09-02-2021 08:41-0400 Diastolic blood pressure 69 mm[Hg] YKLEE MENDOZA MD Work Phone: [facility] Comment on above: Patient Position: Sitting; Cuff Location : Left Arm; Cuff Size: Large 09-02-2021 08:41-0400 Heart rate 82 /min KYLEE MENDOZA MD Work Phone: [facility] [employer] [facility] [employer] [facility] Comment on above: Pattern: Regular 09-02-2021 08:41-0400 Systolic blood pressure 101 mm[Hg] KYLEE MENDOZA MD Work Phone: [facility] [employer] [facility] [employer] [facility] Comment on above: Patient Position: Sitting; Cuff Location : Left Arm; Cuff Size: Large 08-29-2021 15:40-0400 Body height 163.83 cm Rufina Hwang RN [facility] [employer] [facility], [place].; [facility], [facility]. 08-29-2021 15:40-0400 Body mass index (BMI) [Ratio] 34.31 kg/m2 Rufina Hwang RN [facility], [facility].; [facility], [facility]. 08-29-2021 15:40-0400 Body surface area Derived from formula 1.98 m2 Rufina Hwang RN [facility] [employer] [facility], [facility].; [facility], [facility]. 08-29-2021 15:40-0400 Body weight 92.08 kg Rufina Hwang RN [facility] [employer] [facility], [facility].; [facility] [employer] [facility], [facility]. 08-29-2021 15:40-0400 Diastolic blood pressure 78 mm[Hg] Rufina Hwang RN [facility] [employer] [facility] [place].; [facility] [employer] [facility] [place]. Comment on above: Patient Position: Sitting; Cuff Location : Left Arm; Cuff Size: Large 08-29-2021 15:40-0400 Heart rate 75 /min Rufina Hwang RN [facility] [employer] [facility], [place].; [employer] [facility] Comment on above: Pattern: Regular 08-29-2021 15:40-0400 Systolic blood pressure 119 mm[Hg] Rufina Hwang RN [facility], [place].; [employer] [facility] [employer] [facility] Comment on above: Patient Position: Sitting; Cuff Location : Left Arm; Cuff Size: Large 08-15-2021 11:20-0400 Body height 163.83 cm Margie Bella RN [facility] [employer] [facility] 08-15-2021 11:20-0400 Body mass index (BMI) [Ratio] 33.8 kg/m2 Margie Bella RN [facility] 08-15-2021 11:20-0400 Body surface area Derived from formula 1.97 m2 Margie Bella RN [facility] 08-15-2021 11:20-0400 Body temperature 97.9 [degF] Margie Bella RN [facility] [employer] [facility] [employer] [facility] Comment on above: Method: Oral 08-15-2021 11:20-0400 Body weight 90.72 kg Margie Bella RN [facility] [employer] [facility] 08-15-2021 11:20-0400 Diastolic blood pressure 73 mm[Hg] Margie Bella RN [facility] [employer] [facility] [employer] [facility] Comment on above: Patient Position: Sitting; Cuff Location : Left Arm; Cuff Size: Standard 08-15-2021 11:20-0400 Heart rate 89 /min Margie Bella RN [facility] [employer] [facility] [employer] [facility] [employer] [facility] Comment on above: Pattern: Regular 08-15-2021 11:20-0400 Systolic blood pressure 105 mm[Hg] Margie Bella RN [facility] [employer] [facility] [employer] [facility] Comment on above: Patient Position: Sitting; Cuff Location : Left Arm; Cuff Size: Standard 07-27-2019 08:55-0500 Body height 163.83 cm Rufina Hwang RN [facility] 07-27-2019 08:55-0500 Body mass index (BMI) [Ratio] 31.77 kg/m2 Rufina Hwang RN [facility] 07-27-2019 08:55-0500 Body surface area Derived from formula 1.92 m2 Rufina Hwang RN [facility] 07-27-2019 08:55-0500 Body temperature 98 [degF] Rufina Hwang RN [facility], [place]. Comment on above: Method: Oral 07-27-2019 08:55-0500 Body weight 85.28 kg Rufina Hwang RN [facility] 07-27-2019 08:55-0500 Diastolic blood pressure 80 mm[Hg] Rufina Hwang RN [facility], [facility].; [facility], [place]. Comment on above: Patient Position: Sitting; Cuff Location : Left Arm; Cuff Size: Large 07-27-2019 08:55-0500 Heart rate 83 /min Rufina Hwang RN [facility] Comment on above: Pattern: Regular 07-27-2019 08:55-0500 Systolic blood pressure 124 mm[Hg] Rufina Hwang RN [facility], [place]. Comment on above: Patient Position: Sitting; Cuff Location : Left Arm; Cuff Size: Large 07-24-2019 10:14-0500 Body height 163.83 cm Rufina Hwang RN [facility] 07-24-2019 10:14-0500 Body mass index (BMI) [Ratio] 32.45 kg/m2 Rufina Hwang RN [facility] 07-24-2019 10:14-0500 Body surface area Derived from formula 1.93 m2 Rufina Hwang RN [facility] 07-24-2019 10:14-0500 Body temperature 97.8 [degF] Rufina Hwang RN [facility] [employer] [facility] [employer] [facility] Comment on above: Method: Oral 07-24-2019 10:14-0500 Body weight 87.09 kg Rufina Hwang RN [facility] [employer] [facility] [employer] [facility] 07-24-2019 10:14-0500 Diastolic blood pressure 76 mm[Hg] Rufina Hwang RN [facility], [place].; [employer] [facility] [employer] [facility] Comment on above: Patient Position: Sitting; Cuff Location : Left Arm; Cuff Size: Large 07-24-2019 10:14-0500 Heart rate 83 /min Rufina Hwang RN [facility] [employer] [facility] Comment on above: Pattern: Regular 07-24-2019 10:14-0500 Inhaled oxygen concentration 21 % Rufina Hwang RN [facility], [place].; [employer] [facility] [employer] [facility] Comment on above: Room air 07-24-2019 10:14-0500 SaO2% (BldA) [Mass fraction] 96 % Rufina Hwang RN [facility] [employer] [facility] 07-24-2019 10:14-0500 Systolic blood pressure 116 mm[Hg] Rufina Hwang RN [facility], [place].; [employer] [facility] [employer] [facility] [place]. Comment on above: Patient Position: Sitting; Cuff Location : Left Arm; Cuff Size: Large 07-19-2015 13:27-0500 Body height 163.83 cm Rufina Hwang RN [facility] [employer] [facility] [employer] [facility] 07-19-2015 13:27-0500 Body mass index (BMI) [Ratio] 28.39 kg/m2 Rufina Hwang RN [facility], [place].; [facility] [employer] [facility] [place]. 07-19-2015 13:27-0500 Body surface area Derived from formula 1.83 m2 Rufina Hwang RN [facility] 07-19-2015 13:27-0500 Body temperature 97.7 [degF] Rufina Hwang RN [facility] [employer] [facility] [employer] [facility] [place]. Comment on above: Method: Oral 07-19-2015 13:27-0500 Body weight 76.2 kg Rufina Hwang RN [facility] [employer] [facility] [employer] [facility] [employer] [facility] 07-19-2015 13:27-0500 Diastolic blood pressure 72 mm[Hg] Rufina Hwang RN [facility] [employer] [facility] [employer] [facility] [employer] [facility] [place]. Comment on above: Patient Position: Sitting; Cuff Location : Left Arm; Cuff Size: Large 07-19-2015 13:27-0500 Heart rate 81 /min Rufina Hwang RN [facility] [employer] [facility] [employer] [facility], [place]. Comment on above: Pattern: Regular 07-19-2015 13:27-0500 Systolic blood pressure 115 mm[Hg] Rufina Hwang RN [facility] [employer] [facility], [place] [employer] [facility] [employer] [facility] [place]. Comment on above: Patient Position: Sitting; Cuff Location : Left Arm; Cuff Size: Large 08-20-2014 15:170400 Body height 163.83 cm Rufina Hwang RN [facility] [employer] [facility] 08-20-2014 15:17-0400 Body mass index (BMI) [Ratio] 25.86 kg/m2 Rufina Hwang RN [facility] [employer] [facility] [employer] [facility] [place]. 08-20-2014 15:17-0400 Body surface area Derived from formula 1.76 m2 Rufina Hwang RN [facility] [employer] [facility] [employer] [facility] [employer] [facility] [place]. 08-20-2014 15:17-0400 Body temperature 97.8 [degF] Rufina Hwang RN [facility], [place] [employer] [facility] [employer] [facility] Comment on above: Method: Oral 08-20-2014 15:17-0400 Body weight 69.4 kg Rufina Hwang RN [facility] [employer] [facility] 08-20-2014 15:17-0400 Diastolic blood pressure 79 mm[Hg] Rufina Hwang RN [facility] [employer] [facility] Comment on above: Patient Position: Sitting; Cuff Location : Left Arm; Cuff Size: Large 08-20-2014 15:17-0400 Heart rate 74 /min Rufina Hwang RN [facility] [employer] [facility] [place]. Comment on above: Pattern: Regular 08-20-2014 15:17-0400 Systolic blood pressure 115 mm[Hg] Rufina Hwang RN [facility] [employer] [facility] [employer] [facility] Comment on above: Patient Position: Sitting; Cuff Location : Left Arm; Cuff Size: Large 01-26-2014 09:05-0400 Body height 163.83 cm Rufina Hwang RN [facility] 01-26-2014 09:05-0400 Body mass index (BMI) [Ratio] 26.03 kg/m2 Rufina Hwang RN [facility] 01-26-2014 09:05-0400 Body surface area Derived from formula 1.76 m2 Rufina Hwang RN [facility] [employer] [facility] 01-26-2014 09:05-0400 Body weight 69.85 kg Rufina Hwang RN [facility] [employer] [facility] 01-26-2014 09:05-0400 Diastolic blood pressure 68 mm[Hg] Rufina Hwang RN [facility] [employer] [facility] [employer] [facility] Comment on above: Patient Position: Sitting; Cuff Location : Left Arm; Cuff Size: Large 01-26-2014 09:05-0400 Heart rate 80 /min Rufina Hwang RN [facility] [employer] [facility] [employer] [facility] Comment on above: Pattern: Regular 01-26-2014 09:05-0400 Systolic blood pressure 107 mm[Hg] Rufina Hwang RN [facility] [employer] [facility] [employer] [facility] Comment on above: Patient Position: Sitting; Cuff Location : Left Arm; Cuff Size: Large 01-15-2014 10:46-0400 Body height 163.83 cm Margie Bella RN [facility] [employer] [facility] [employer] [facility] [employer] [facility] 01-15-2014 10:46-0400 Body mass index (BMI) [Ratio] 25.69 kg/m2 Margie Bella RN [facility] [employer] [facility] [employer] [facility] [employer] [facility] 01-15-2014 10:46-0400 Body surface area Derived from formula 1.75 m2 Margie Bella RN [facility] [employer] [facility] [employer] [facility] [employer] [facility] 01-15-2014 10:46-0400 Body temperature 98 [degF] Margie Bella RN [facility] [employer] [facility] [employer] [facility] [employer] [facility] Comment on above: Method: Oral 01-15-2014 10:46-0400 Body weight 68.95 kg Margie Bella RN [facility] [employer] [facility] [employer] [facility] [employer] [facility] 01-15-2014 10:46-0400 Diastolic blood pressure 70 mm[Hg] Margie Bella RN [facility] [employer] [facility] [employer] Comment on above: Patient Position: Sitting; Cuff Location : Left Arm; Cuff Size: Standard 01-15-2014 10:46-0400 Heart rate 80 /min Margie Bella RN [facility] [employer] [facility] [employer] Comment on above: Pattern: Regular 01-15-2014 10:46-0400 Systolic blood pressure 109 mm[Hg] Margie Bella RN [facility] [employer] [facility] [employer] Comment on above: Patient Position: Sitting; Cuff Location : Left Arm; Cuff Size: Standard 01-12-2014 18:49-0400 Body height 163.83 cm KYLEE MENDOZA MD Work Phone: [facility] [employer] [facility] [employer] [facility] 01-12-2014 18:49-0400 Body mass index (BMI) [Ratio] 26.03 kg/m2 KYLEE MENDOZA MD Work Phone: [facility] [employer] [facility] 01-12-2014 18:49-0400 Body surface area Derived from formula 1.76 m2 KLYEE MENDOZA MD Work Phone: [facility].; [facility] [employer] [facility]. 01-12-2014 18:49-0400 Body weight 69.85 kg KYLEE MENDOZA MD Work Phone: [facility].; [employer] [facility] [employer]. 01-12-2014 18:49-0400 Diastolic blood pressure 76 mm[Hg] KYLEE MENDOZA MD Work Phone: [facility].; [employer] [facility] [employer]. Comment on above: Patient Position: Sitting; Cuff Location : Left Arm; Cuff Size: Standard 01-12-2014 18:49-0400 Heart rate 96 /min KYLEE MENDOZA MD Work Phone: [facility] [employer]; [employer] [facility] [employer]. Comment on above: Pattern: Regular 01-12-2014 18:49-0400 Systolic blood pressure 115 mm[Hg] KYLEE MENDOZA MD Work Phone: [employer] [facility] [employer]. Comment on above: Patient Position: Sitting; Cuff Location : Left Arm; Cuff Size: Standard 01-26-2012 10:15-0400 Body height 163.83 cm KYLEE MENDOZA MD Work Phone: [facility] [employer] [facility] [employer] [facility] 01-26-2012 10:15-0400 Body mass index (BMI) [Ratio] 25.69 kg/m2 KYLEE MENDOZA MD Work Phone: [employer]; [employer] [facility] [employer]. 01-26-2012 10:15-0400 Body surface area Derived from formula 1.75 m2 KYLEE MENDOZA MD Work Phone: [employer]; [employer] [facility] [employer] 01-26-2012 10:15-0400 Body temperature 98.4 [degF] KYLEE MENDOZA MD Work Phone: [employer]; [employer] [facility] [employer] Comment on above: Method: Oral 01-26-2012 10:15-0400 Body weight 68.95 kg KYLEE MENDOZA MD Work Phone: [employer]; [employer] [facility] [employer]. 01-26-2012 10:15-0400 Diastolic blood pressure 68 mm[Hg] KYLEE MENDOZA MD Work Phone: [employer]; [employer] [facility] [employer]. Comment on above: Patient Position: Sitting; Cuff Location : Left Arm; Cuff Size: Large 01-26-2012 10:15-0400 Heart rate 99 /min KYLEE MENDOZA MD Work Phone: [employer]; [employer] [facility] [employer]. Comment on above: Pattern: Regular 01-26-2012 10:15-0400 Systolic blood pressure 106 mm[Hg] KYLEE MENDOZA MD Work Phone: [employer]; [employer] [facility] Comment on above: Patient Position: Sitting; Cuff Location : Left Arm; Cuff Size: Large 01-22-2012 14:58-0400 Body height 163.83 cm Rufina Hwang RN [facility] [employer] [facility] [employer]. 01-22-2012 14:58-0400 Body mass index (BMI) [Ratio] 25.69 kg/m2 Rufina Hwang RN [facility] 01-22-2012 14:58-0400 Body surface area Derived from formula 1.75 m2 Rufina Hwang RN [facility] [employer] [facility] 01-22-2012 14:58-0400 Body temperature 98.2 [degF] Rufina Hwang RN [facility] [employer] [facility] [employer] [facility] Comment on above: Method: Oral 01-22-2012 14:58-0400 Body weight 68.95 kg Rufina Hwang RN [facility] 01-22-2012 14:58-0400 Diastolic blood pressure 73 mm[Hg] Rufina Hwang RN [facility] [employer] [facility] [employer] [facility] Comment on above: Patient Position: Sitting; Cuff Location : Left Arm; Cuff Size: Large 01-22-2012 14:58-0400 Heart rate 88 /min Rufina Hwang RN [facility] [employer] [facility] [employer] [facility] Comment on above: Pattern: Regular 01-22-2012 14:58-0400 Systolic blood pressure 121 mm[Hg] Rufina Hwang RN [facility] [employer] [facility] [employer] [facility] Comment on above: Patient Position: Sitting; Cuff Location : Left Arm; Cuff Size: Large 07-18-2010 14:39-0500 Body height 163.83 cm Margie Bella RN [facility] [employer] [facility] [employer] [facility] [employer] [facility] 07-18-2010 14:39-0500 Body mass index (BMI) [Ratio] 25.18 kg/m2 Margie Bella RN [facility] [employer] [facility] [employer] [facility] 07-18-2010 14:39-0500 Body surface area Derived from formula 1.74 m2 Margie Bella RN [facility] [employer] [facility] [employer] [facility] [place]. 07-18-2010 14:39-0500 Body temperature 98.1 [degF] [facility] [employer] [facility] [employer] [facility] [place]. Comment on above: Method: Oral 07-18-2010 14:39-0500 Body weight 67.59 kg Margie [facility] [employer] [facility] [employer] [facility] 07-18-2010 14:39-0500 Diastolic blood pressure 76 mm[Hg] [facility] [employer] [facility] [place]. Comment on above: Patient Position: Sitting; Cuff Location : Left Arm; Cuff Size: Standard 07-18-2010 14:39-0500 Heart rate 94 /min Margie Bella [facility] [employer] [facility] [employer] [facility]. Comment on above: Pattern: Regular 07-18-2010 14:39-0500 Systolic blood pressure 117 mm[Hg] Margie Bella RN [facility] [employer] [facility] [employer] [facility] [place]. Comment on above: Patient Position: Sitting; Cuff Location : Left Arm; Cuff Size: Standard 03-22-2010 10:48-0400 Body height 163.83 cm KYLEE MENDOZA MD Work Phone: [facility] [employer] [facility] [employer] [facility] [employer] [facility] 03-22-2010 10:48-0400 Body mass index (BMI) [Ratio] 25.01 kg/m2 KYLEE MENDOZA MD Work Phone: [facility] [employer] [facility] [employer] [facility] 03-22-2010 10:48-0400 Body surface area Derived from formula 1.73 m2 KYLEE MENDOZA MD Work Phone: [facility] [employer] [facility] [employer] [facility] 03-22-2010 10:48-0400 Body temperature 98.1 [degF] KYLEE MENDOZA MD Work Phone: [facility] [employer] [facility] [employer] [facility] [employer] [facility]. Comment on above: Method: Oral 03-22-2010 10:48-0400 Body weight 67.13 kg KYLEE MENDOZA MD Work Phone: [employer] [facility]; [employer] [facility]. 03-22-2010 10:48-0400 Diastolic blood pressure 76 mm[Hg] KYLEE MENDOZA MD Work Phone: [employer]; [employer]. Comment on above: Patient Position: Sitting; Cuff Location : Left Arm; Cuff Size: Standard 03-22-2010 10:48-0400 Heart rate 90 /min KYLEE MENDOZA MD Work Phone: [employer]; [employer] [facility] [employer]. Comment on above: Pattern: Regular 03-22-2010 10:48-0400 Systolic blood pressure 104 mm[Hg] KYLEE MENDOZA MD Work Phone: [employer]; [employer]. Comment on above: Patient Position: Sitting; Cuff Location : Left Arm; Cuff Size: Standard Encounters Encounter Date Encounter Type Care Provider Facility Start: 02-22-2024 End: 02-22-2024 ambulatory FRANCISCO EARLY Facility[facility] Start: 02-22-2024 End: 02-22-2024 Patient encounter procedure Francisco Early MD Work Phone: OB/Gynecology Comment on above: Postoperative pain ( Primary Dx); Menorrhagia with regular cycle; Chronic pelvic pain in female; Adenomyosis Start: 01-05-2024 Telephone encounter Francisco Early MD Work Phone: OB/Gynecology Comment on above: schedule procedure Start: 09-21-2023 Telephone encounter Francisco Early MD Work Phone: OB/Gynecology Comment on above: Results Start: 09-13-2023 End: 09-13-2023 ambulatory FRANCISCO EARLY Facility[facility] Start: 09-13-2023 End: 09-13-2023 Patient encounter procedure Francisco Early MD Work Phone: OB/Gynecology Comment on above: Menorrhagia with reg ular cycle (Primary Dx); Special screening examination for human papillomavirus (HPV); Encounter for screening for malignant neoplasm of cervix Start: 09-02-2023 End: 09-02-2023 ambulatory FRANCISCO EARLY Facility:[facility] Start: 09-02-2023 End: 09-02-2023 Manual pelvic examination Ob Ultrasound Work Phone: OB/Gynecology Comment on above: Pelvic Pain Start: 09-02-2023 End: 09-02-2023 Patient encounter procedure Utility [facility] [place] [facility] Work Phone: [place] [facility] Start: 08-18-2023 End: 08-18-2023 ambulatory KIERSTEN MORALES Facility:[facility] Start: 07-23-2023 Review KYLEE Glass Work Phone: [employer] Start: 07-23-2023 End: 07-23-2023 Office outpatient visit 10 minutes KYLEE MENDOZA MD Work Phone: [employer] Start: 04-01-2022 End: 04-01-2022 Transition of Care KYLEE MENDOZA MD Work Phone: [employer] Start: 03-13-2022 End: 03-13-2022 Follow-up encounter KYLEE MENDOZA MD Work Phone: [employer] Start: 03-13-2022 End: 03-13-2022 ambulatory KIERSTEN MORALES [facility] Start: 03-12-2022 End: 03-12-2022 Office outpatient visit 10 minutes KYLEE MENDOZA MD Work Phone: [employer] Start: 09-02-2021 End: 09-02-2021 Office outpatient visit 10 minutes KYLEE MENDOZA MD Work Phone: [employer] Start: 08-29-2021 End: 08-29-2021 Office outpatient visit 15 minutes KYLE[facility]END[facility] Start: 08-15-2021 End: 08-15-2021 Office outpatient visit 10 minutes KYLEE MENDOZA MD Work Phone: [facility] [employer] [facility] Start: 07-28-2019 End: 07-28-2019 Results Review KYLEE MENDOZA MD Work Phone: [facility] [employer]. Start: 07-27-2019 End: 07-27-2019 Office outpatient visit 10 minutes KYLEE MENDOZA MD Work Phone: [facility] [employer]. Start: 07-24-2019 End: 07-24-2019 Office outpatient visit 10 minutes KYLEE MENDOZA MD Work Phone: [facility] [employer]. Start: 07-19-2015 End: 07-19-2015 Office outpatient visit 15 minutes KYLEE MENDOZA MD Work Phone: [employer] [facility] Start: 08-20-2014 End: 08-20-2014 Medication Refill/Order KYLEE MENDOZA MD Work Phone: [facility] [employer]. Start: 08-20-2014 End: 08-20-2014 Office outpatient visit 10 minutes KYLEE MENDOZA [facility] Start: 02-02-2014 End: 02-02-2014 Transition of Care KYLEE MENDOZA MD [facility]: [facility] [employer] Start: 01-26-2014 End: 01-26-2014 Patient encounter procedure KYLEE MENDOZA MD Work Phone: [facility] [employer]. Start: 01-20-2014 End: 01-24-2014 Lab Only KYLEE MENDOZA MD Work Phone: [facility] Start: 01-19-2014 End: 01-19-2014 Historical Summary KYLEE MENDOZA MD [facility]: [facility] Start: 01-17-2014 End: 01-17-2014 Medication Refill/Order KYLEE MENDOZA MD Work Phone: [facility] Start: 01-15-2014 End: 01-15-2014 Medication Refill/Order KYLEE MENDOZA MD Work Phone: [facility] Start: 01-15-2014 End: 01-15-2014 Patient encounter procedure KYLEE MENDOZA MD Work Phone: [facility] Start: 01-14-2014 End: 01-14-2014 Results Review KYLEE MENDOZA MD Work Phone: [facility] Start: 01-12-2014 End: 01-12-2014 Medication Refill/Order KYLEE MENDOZA MD Work Phone: [facility] Start: 01-12-2014 End: 01-12-2014 Patient encounter procedure KYLEE MENDOZA MD Work Phone: [facility] Start: 06-14-2012 End: 06-14-2012 Historical Summary KYLEE MENDOZA MD [facility] Start: 01-26-2012 End: 01-26-2012 Patient encounter procedure KYLEE MENDOZA MD Work Phone: [facility] Start: 01-22-2012 End: 01-22-2012 Patient encounter procedure KYLEE MENDOZA MD Work Phone: [facility] Start: 07-19-2010 End: 07-19-2010 Results Review KYLEE MENDOZA MD [facility]: [facility] Start: 07-18-2010 End: 07-18-2010 Patient encounter procedure KYLEE MENDOZA MD Work Phone: [facility] Start: 03-22-2010 End: 03-22-2010 Patient encounter procedure KYLEE MENDOZA MD Work Phone: [facility] Procedures Date Procedure Procedure Detail Performing Clinician Start: 09-13-2023 UA DIP,URINE HCG (POC) Francisco Early MD Work Phone: Start: 09-02-2023 Us pelvic nonobstetr ic real-time image complete Francisco Early MD Work Phone: Start: 07-23-2023 End: 07-23-2023 Dischrg meds reconciled w/current med list KIERSTEN MORALES GRAPHIC ARTS TECHNICIAN-C Work Phone: Start: 03-13-2022 End: 03-13-2022 Ct abdomen & pelvis w/contrast material KIERSTEN MORALES GRAPHIC ARTS TECHNICIAN-C Work Phone: Start: 08-15-2021 End: 08-15-2021 Dischrg meds reconciled w/current med list J SHAY HORN MD Work Phone: Start: 07-27-2019 End: 07-27-2019 Urinary Incontinence Margie Bella RN Comment on above: Negative. Start: 01-19-2014 End: 01-19-2014 Echocardiography KIERSTEN MORALES GRAPHIC ARTS TECHNICIAN-C Work Phone: Comment on above: Normal. Start: 05-31-2012 End: 05-31-2012 section KIERSTEN MORALES GRAPHIC ARTS TECHNICIAN-C Work Phone: Comment on above: [place] Start: 01-22-2012 End: 01-22-2012 Adacel Margie Bella RN Start: 01-22-2012 End: 01-22-2012 Ceftriaxone sodium injection RISHI DEAN MD Work Phone: Start: 01-22-2012 End: 01-22-2012 Therapeutic prophylactic/dx injection subq/im RISHI SAUNEDRS MD Work Phone: Plan of Treatment Date Care Activity Detail Author Start: 09-12-2028 Screening for malign ant neoplasm of cervix Cervical Cancer Screening [facility] Start: 04-17-2024 End: 04-17-2024 Patient encounter procedure 04/17/2024 3:20 PM EST Office Visit OB/Gynecology [address] [place], [place] [id number] Francisco Early MD [address] [place] [id number] Post Op OB/Gynecology Comment on above: Post Op Start: 03-15-2024 End: 03-15-2024 Patient encounter procedure 03/15/2024 3:20 PM EDT Office Visit OB/Gynecology [address] [place] [id number] Francisco Early MD [address] [place] [id number] Post Op OB/Gynecology Comment on above: Post Op Start: 2024 Screening for malign ant neoplasm of breast Mammogram Screening [facility] Start: 01-23-2024 Covid-19 Vaccine ( season) Covid-19 Vaccine () [facility] Start: 01-23-2024 Influenza vaccination [facility] Start: 05-24-2023 Behavioral Health Screening Behavioral Health Screening [facility] Start: 01-22-2023 Covid-19 Vaccine ( season) Covid-19 Vaccine () [facility] Start: 01-21-2022 Urine microalbumin profile DTaP,Tdap,Td Vaccine (2 - Td or Tdap) [facility] Start: 08-29-2021 End: 08-29-2021 Removal skn tags client technical support associate fibrq tags any area upw/15 Remove Skin Tags 06-07 ([id number]) Date: 29-Aug-2021 [employer]; [employer] [facility] [employer]. Start: 02-07-2014 Screening for malign ant neoplasm of cervix HPV Testing [facility] Start: 01-15-2014 [facility]om-mode compl spec&colr d 2D DOPPLER M-MODE ECHOCARDIOGRAPHY with contrast if indicated ([id number]) Start: 15-Jan-2014 Intent [employer]; [employer] [facility] [employer]. Start: 01-15-2014 Concentration infectious agents STOOL FOR OVA AND PARASITE- CONCENTRATION ([id number]) Start: 15-Jan-2014 11:51-04:00 Request [employer]; [employer] [facility] [employer]. Start: 01-22-2012 End: 01-22-2012 Incision & removal foreign body subq tiss simple FOREIGN BODY REMOVAL, SIMPLE ([id number]) Date: 22-Jan-2012 [facility]; [employer] [facility] [employer]. Start: 02-07-2005 Screening for malign ant neoplasm of cervix Pap Testing [facility] Start: 02-07-2003 Hepatitis B Vaccine (1 of 3 - 19+ 3-dose series) Hepatitis B Vaccine (1 of 3 - 19+ 3-dose series) [facility] Start: 02-07-2002 Anxiety Screening Anxiety Screening [facility] Start: 02-07-2002 Depression Screening Depression Scre ening [facility] Start: 02-07-2002 Hepatitis C screening Hepatitis C Sc reening [facility] Start: 02-07-2002 HIV screening HIV Screening [facility] PAP TEST PAP TEST Lab [place] Menorrhagia with regular cycle Special screening examination for human papillomavirus (HPV) Encounter for screening for malignant neoplasm of cervix 09/13/2023 1:03 PM EDT [facility] SURGICAL PATHOLOGY SURGICAL PATH OLOGY Lab Routine Menorrhagia with regular cycle 09/13/2023 1:03 PM EDT [facility] Work Phone: [facility] Immunizations Immunization Date Immunization Notes Care Provider Fa livan 01-22-2012 tetanus toxoid, redu adriana diphtheria toxoid, and acellular pertussis vaccine, adsorbed KYLEE MENDOZA MD [facility] Comment on above: Site: Gluteus (Right ) 01-22-2012 *IMMUNIZATION ADMIN ([id number]) KYLEE MENDOZA MD [facility] influenza virus vaccine, unspecified formulation KYLEE MENDOZA MD [facility] Comment on above: Refused. Payers Date Payer Category Payer Unknown 2016 Unknown [id number] 1984 Unknown [id number] Social History Date Type Detail Facility Alcohol Use: Alcohol Use: ; N o [facility] Start: 08-18-2023 End: 02-22-2024 Current Work/Study Status [facility] Tobacco use: Tobacco use: ; N ever smoker. [facility] Work Phone: Start: 08-18-2023 Never smoked tobacco [facility] Start: 08-18-2023 Tobacco use and exposure Smokeless tobacco non-user [facility] Start: 08-18-2023 End: 02-22-2024 Alcohol intake Ex-drinker (finding) [facility] Start: 08-18-2023 End: 02-22-2024 Tobacco use panel [facility] Start: 1985 Sex Assigned At Not on file [facility] National Score (1-100), lower number is lower risk 38 [facility] Clinical Notes 08-18-2023 to 02-22-2024 Francisco Early MD - 02/22/2024 5:09 PM Francisco Magana MD - 02/22/2024 2:40 PM HUBERTTRFrancisco sheehan MD - 02/22/2024 2:40 PM EDTPatient Instructions Note Date & Type Note Facility 02-22-2024 Note HNO ID: [id number] Author: FRANCISCO EARLY MD Service: ? Author Type: Physician Type: Progress Notes Filed: 02/22/2024 17:15 Note Text: Racheal Urban is a 39 year old female who presents for problem visit for AUB. HPI: 39-year-old female who is completed childbearing presents today complaining of abnormal uterine bleeding. She states her last 2 menses have not been as heavy. She does have some cramping with her menses. OB History T3 L3 SAB3 IAB0 Ectopic0 Multiple0 Live Births3 Thermostat Machine Tender History LMP: 09/04/2023 (Exact Date), Having periods Age at Menarche: Age at First : Age at Menopause: Thermostat Machine Tender History Comments: Sexual Activity: Yes; Male Contraception: No contraception data on record PAST MEDICAL HISTORY Diagnosis Date Hypoglycemia Uterine fibroid 2021 PAST SURGICAL HISTORY Procedure Laterality Date SECTION HX x3 History reviewed. No pertinent family history. Social History Tobacco Use Smoking status: Never Smokeless tobacco: Never Vaping Use Vaping status: Never Used Substance Use Topics Alcohol use: Not Currently Drug use: Never Current Outpatient Medications Medication Sig ondansetron (ZOFRAN) 4 mg tablet Take 1 tablet by mouth every 8 hours as needed for nausea/vomiting. ibuprofen (MOTRIN) 600 mg tablet Take 1 tablet by mouth every 6 hours as needed for pain. FOR PAIN. oxyCODONE IR (ROXICODONE) 5 mg immediate release tablet Take 1 tablet by mouth every 8 hours as needed for pain for up to 5 days. tranexamic acid (LYSTEDA) 650 mg tablet Take 2 tablets by mouth three times a day as needed (heavy menstrual bleeding). No current facility-administered medications for this visit. Allergies As of Date: 02/22/2024 (No Known Allergies) Fully Assessed 02/22/2024 SENSITIVE EXAM: Sensitive exam not performed. EXAM: BP 116/68 Pulse 88 Resp 16 Ht 5' 4 (1.63m) Wt 214 lb (97.1kg) LMP 09/04/2023 BMI 36.72 kg/(m2). GENERAL: pleasant, female in no apparent distress Reviewed pelvic ultrasound, EMB and Pap and high-risk HPV today ASSESSMENT AND PLAN: Chronic pelvic pain, adenomyosis, menorrhagia. Risk-benefit and alternatives to hysterectomy and discussed with the patient, her questions were answered to her satisfaction she desires to proceed. Decision for surgery today. Postoperative prescriptions given. Declines hormonal options or IUD. Understands pain may not be completely resolved with surgery. Not a good endometrial ablation candidate due to pain and adenomyosis. Plan for TLH, bilateral salpingectomy and cystoscopy. Ovaries to remain unless unanticipated pathology time of surgery. Francisco Early MD [facility] 02-22-2024 History of Presen t illness Narrative Racheal Urban is a 39 year old female who presents for problem visit for AUB. HPI: 39-year-old female who is completed childbearing presents today complaining of abnormal uterine bleeding. She states her last 2 menses have not been as heavy. She does have some cramping with her menses. OB History T3 L3 SAB3 IAB0 Ectopic0 Multiple0 Live Births3 Thermostat Machine Tender History LMP: 09/04/2023 (Exact Date), Having periods Age at Menarche: Age at First : Age at Menopause: Thermostat Machine Tender History Comments: Sexual Activity: Yes; Male Contraception: No contraception data on record PAST MEDICAL HISTORY Diagnosis Date Hypoglycemia Uterine fibroid 2021 PAST SURGICAL HISTORY Procedure Laterality Date SECTION HX x3 History reviewed. No pertinent family history. Social History Tobacco Use Smoking status: Never Smokeless tobacco: Never Vaping Use Vaping status: Never Used Substance Use Topics Alcohol use: Not Currently Drug use: Never Current Outpatient Medications Medication Sig ondansetron (ZOFRAN) 4 mg tablet Take 1 tablet by mouth every 8 hours as needed for nausea/vomiting. ibuprofen (MOTRIN) 600 mg tablet Take 1 tablet by mouth every 6 hours as needed for pain. FOR PAIN. oxyCODONE IR (ROXICODONE) 5 mg immediate release tablet Take 1 tablet by mouth every 8 hours as needed for pain for up to 5 days. tranexamic acid (LYSTEDA) 650 mg tablet Take 2 tablets by mouth three times a day as needed (heavy menstrual bleeding). No current facility-administered medications for this visit. Allergies As of Date: 02/22/2024 (No Known Allergies) Fully Assessed 02/22/2024 SENSITIVE EXAM: Sensitive exam not performed. EXAM: BP 116/68 Pulse 88 Resp 16 Ht 5' 4 (1.63m) Wt 214 lb (97.1kg) LMP 09/04/2023 BMI 36.72 kg/(m^2). GENERAL: pleasant, female in no apparent distress Reviewed pelvic ultrasound, EMB and Pap and high-risk HPV today ASSESSMENT AND PLAN: Chronic pelvic pain, adenomyosis, menorrhagia. Risk-benefit and alternatives to hysterectomy and discussed with the patient, her questions were answered to her satisfaction she desires to proceed. Decision for surgery today. Postoperative prescriptions given. Declines hormonal options or IUD. Understands pain may not be completely resolved with surgery. Not a good endometrial ablation candidate due to pain and adenomyosis. Plan for TLH, bilateral salpingectomy and cystoscopy. Ovaries to remain unless unanticipated pathology time of surgery. Francisco Early MD documented in this encounter [facility] 02-22-2024 History and physical note Pre-Op History and Physical HPI: The patient is a 39 year old female presenting for pre-operative visit. She is scheduled for total laparoscopic hysterectomy bilateral salpingectomy and cystoscopy, for menorrhagia and adenomyosis and chronic pelvic pain on 03/10/24. Procedure discussed along with risks, benefits and complications. Other alternatives discussed for management. Consent form signed? Yes. PAST MEDICAL HISTORY Diagnosis Date Hypoglycemia Uterine fibroid 2021 PAST SURGICAL HISTORY Procedure Laterality Date SECTION HX x3 Current Outpatient Medications Medication Sig Dispense Refill tranexamic acid (LYSTEDA) 650 mg tablet Take 2 tablets by mouth three times a day as needed (heavy menstrual bleeding). 30 tablet 11 No current facility-administered medications for this visit. ALLERGIES: Patient has no known allergies. PERSONAL HISTORY: Social History Tobacco Use Smoking status: Never Smokeless tobacco: Never Vaping Use Vaping status: Never Used Substance Use Topics Alcohol use: Not Currently Drug use: Never FAMILY HISTORY: History reviewed. No pertinent family history. REVIEW OF SYMPTOMS: GENERAL: denies fevers or chills ENDOCRINOLOGY: has not been on steroids Cardiology : denies palpitations or chest pain Respiratory: denies SOB or cough Hematology: denies history of prolonged bleeding or easy bruising or VTE Allergy: Denies history of personal or family history of allergy to anesthesia PHYSICAL EXAMINATION: VITALS: Blood pressure 116/68, pulse 88, resp. rate 16, height 162.6 cm (5' 4 ), weight 97.1 kg (214 lb), last menstrual period 09/04/2023. GENERAL: The patient is well nourished, well hydrated in no acute distress. , The patient is oriented to time, place, and person. NECK: Supple. No lynphadenopathy, normal thyroid, no thyromegaly. LUNGS: Clear to auscultation bilaterally. no wheezes, rhonchi or rales HEART: Regular rate and rhythm, Normal heart sounds, and No murmurs or gallops Pap and high-risk HPV were negative on 09/13/2023 Endometrial biopsy was benign on 09/13/2023 Pelvic ultrasound on 09/02/2023: Impression A anteverted uterus seen that measures 113 mm x 59 mm x 78 mm. The myometrium is suspicious of adenomyosis but no obvious fibroids are observed. The central endometrium complex measures 10.9 mm in combined thickness. No abnormal blood flow to suggest a polyp or focal endometrial pathology is observed within the endometrial complex. The contour of the endometrial cavity was normal on 3-D imaging. The left ovary is not visualized. The right ovary is normal appearing. Positive slide sign of right adnexa. No adnexal masses were observed. There is no free fluid visualized in the peritoneal cavity. Recommendations Ultrasound findings suggestive for adenomyosis. Clinical correlation is recommended. IMPRESSION: Chronic pelvic pain, adenomyosis and menorrhagia PLAN: The risks/benefits/alternatives and personal involved for the planned total laparoscopic hysterectomy with bilateral salpingectomy and cystoscopy were reviewed with the patient. Her questions were answered to her satisfaction and she desires to proceed. Consent was signed. I reviewed with her postop instructions and expectations. We reviewed that ovaries would remain unless an anticipated pathology arises at time of surgery. Postoperative prescriptions were sent. I have reviewed and updated past medical and surgical history, medications and allergies Francisco Early M.D. [facility] 02-22-2024 History and physical note Pre-Op History and Physical HPI: The patient is a 39 year old female presenting for pre-operative visit. She is scheduled for total laparoscopic hysterectomy bilateral salpingectomy and cystoscopy, for menorrhagia and adenomyosis and chronic pelvic pain on 03/10/24. Procedure discussed along with risks, benefits and complications. Other alternatives discussed for management. Consent form signed? Yes. PAST MEDICAL HISTORY Diagnosis Date Hypoglycemia Uterine fibroid 2021 PAST SURGICAL HISTORY Procedure Laterality Date SECTION HX x3 Current Outpatient Medications Medication Sig Dispense Refill tranexamic acid (LYSTEDA) 650 mg tablet Take 2 tablets by mouth three times a day as needed (heavy menstrual bleeding). 30 tablet 11 No current facility-administered medications for this visit. ALLERGIES: Patient has no known allergies. PERSONAL HISTORY: Social History Tobacco Use Smoking status: Never Smokeless tobacco: Never Vaping Use Vaping status: Never Used Substance Use Topics Alcohol use: Not Currently Drug use: Never FAMILY HISTORY: History reviewed. No pertinent family history. REVIEW OF SYMPTOMS: GENERAL: denies fevers or chills ENDOCRINOLOGY: has not been on steroids Cardiology : denies palpitations or chest pain Respiratory: denies SOB or cough Hematology: denies history of prolonged bleeding or easy bruising or VTE Allergy: Denies history of personal or family history of allergy to anesthesia PHYSICAL EXAMINATION: VITALS: Blood pressure 116/68, pulse 88, resp. rate 16, height 162.6 cm (5' 4 ), weight 97.1 kg (214 lb), last menstrual period 09/04/2023. GENERAL: The patient is well nourished, well hydrated in no acute distress. , The patient is oriented to time, place, and person. NECK: Supple. No lynphadenopathy, normal thyroid, no thyromegaly. LUNGS: Clear to auscultation bilaterally. no wheezes, rhonchi or rales HEART: Regular rate and rhythm, Normal heart sounds, and No murmurs or gallops Pap and high-risk HPV were negative on 09/13/2023 Endometrial biopsy was benign on 09/13/2023 Pelvic ultrasound on 09/02/2023: Impression A anteverted uterus seen that measures 113 mm x 59 mm x 78 mm. The myometrium is suspicious of adenomyosis but no obvious fibroids are observed. The central endometrium complex measures 10.9 mm in combined thickness. No abnormal blood flow to suggest a polyp or focal endometrial pathology is observed within the endometrial complex. The contour of the endometrial cavity was normal on 3-D imaging. The left ovary is not visualized. The right ovary is normal appearing. Positive slide sign of right adnexa. No adnexal masses were observed. There is no free fluid visualized in the peritoneal cavity. Recommendations Ultrasound findings suggestive for adenomyosis. Clinical correlation is recommended. IMPRESSION: Chronic pelvic pain, adenomyosis and menorrhagia PLAN: The risks/benefits/alternatives and personal involved for the planned total laparoscopic hysterectomy with bilateral salpingectomy and cystoscopy were reviewed with the patient. Her questions were answered to her satisfaction and she desires to proceed. Consent was signed. I reviewed with her postop instructions and expectations. We reviewed that ovaries would remain unless an anticipated pathology arises at time of surgery. Postoperative prescriptions were sent. I have reviewed and updated past medical and surgical history, medications and allergies Francisco Early M.D. documented in this encounter [facility] 01-07-2024 Telephone encount er Note Surgery sheet to outpatient scheduler. Arianna Stover RN [facility] 01-07-2024 Miscellaneous Notes Formattin g of this note might be different from the original. Surgery sheet to outpatient scheduler. Arianna Stover RN completed. Francisco Early MD Surgery sheet to provider to fill out. Arianna Stover RN NEed surgery sheet. Francisco Early MD Patient will need a surgery sheet. See previous phone note on 09/21/23. Arianna Stover RN Pt called ready to schedule her hysterectomy for sometime in February with Dr. Early. documented in this encounter [facility] 01-07-2024 Telephone encount er Note completed. Francisco Early MD [facility] 01-07-2024 Telephone encount er Note Surgery sheet to provider to fill out. Arianna Stover RN [facility] 01-07-2024 Telephone encount er Note NEed surgery sheet. Francisco Early MD [facility] 01-05-2024 Telephone encount er Note Patient will need a surgery sheet. See previous phone note on 09/21/23. Arianna Stover RN [facility] 01-05-2024 Telephone encount er Note Pt called ready to schedule her hysterectomy for sometime in February with Dr. Early. [facility] Work Phone: 09-22-2023 Telephone encount er Note Tell her to call back mid December to request to have it scheduled in Feb. Thanks! Francisco Early MD [facility] 09-22-2023 Miscellaneous Notes Formattin g of this note might be different from the original. Tell her to call back mid December to request to have it scheduled in Feb. Thanks! Francisco Early MD Patient notified. She would like to proceed with surgery, but not until the February. Do you want a surgery sheet this far in advance? Kailyn Lopes RN Left message for patient to call office. Janine Mir RN Biopsy benign. I was waiting for the pap to call her. We will contact her if anything comes back abnormal> Has she decided how she would like to proceed (surgery or try TXA and monitor for now? ) Francisco Early MD Patient had EMB 09/12. Pap/HPV still in process. Janine Mir RN Patient called for status update on biopsy results. Please contact patient to review. documented in this encounter [facility] 09-22-2023 Telephone encount er Note Patient notified. She would like to proceed with surgery, but not until the February. Do you want a surgery sheet this far in advance? Kailyn LopesHENNA [facility] 09-22-2023 Telephone encount er Note Left message for patient to call office. Janine Mir RN [facility] 09-22-2023 Telephone encount er Note Biopsy benign. I was waiting for the pap to call her. We will contact her if anything comes back abnormal> Has she decided how she would like to proceed (surgery or try TXA and monitor for now? ) Francisco Early MD [facility] 09-21-2023 Telephone encount er Note Patient had EMB 09/12. Pap/HPV still in process. Janine Mir RN [facility] 09-21-2023 Telephone encount er Note Patient called for status update on biopsy results. Please contact patient to review. [facility] 09-13-2023 Instructions Josie Alfred MA - 09/13/2023 11:10 AM EDT YOUR RECOVERY After your biopsy you may have: Vaginal bleeding (less than a normal menstrual period) Mild cramping Do NOT put anything in the vagina for 1 week after your endometrial biopsy. This includes: tampons douches and refraining from having sexual intercourse If you have any discomfort, you may take an over the counter pain medication (motrin, advil, ibuprofen, tylenol, etc). If this does not relieve your discomfort, contact the office. It is okay to wear a sanitary pad until the discharge and spotting stops. RISKS Although problems seldom occur with endometrial biopsies, there can be some complications. You may feel faint during and shortly after the procedure as well as have some bleeding after the procedure. There is also a risk of infection after the procedure. These complications are rare and can be easily treated. You should contact you doctor is you have any of the following: Heavy bleeding (more than your normal period) Bleeding with clots Severe abdominal pain Fever (more than 100.4F) Foul smelling vaginal discharge RESULTS We will have the results of your biopsy in 1-2 weeks. If you do not hear the results of your biopsy after 2 weeks, please contact the office for the results. If you have any additional questions or concerns please do not hesitate to contact the office. documented in this encounter [facility] 09-13-2023 Note HNO ID: [id number] Author: FRANCISCO EARLY MD Service: ? Author Type: Physician Type: Progress Notes Filed: 09/13/2023 12:16 Note Text: Racheal Urban is a 38 year old female who presents for problem visit for f/u AUB. Last menses was heavy and crampy, last 2 before that were better. Didn't take the progestin- norethindrone b/c taking a natural progestin supplement. The 2nd day fo this last 5 day menses was the worst. Didn't take any medication. She states the pain is not the main concern last 3 months. More the heavy bleeding. 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 Social History Tobacco Use Smoking status: Never Smokeless tobacco: Never Vaping Use Vaping Use: Never used Substance Use Topics Alcohol use: Not Currently Drug use: Never Current Outpatient Medications Medication Sig norethindrone (AYGESTIN) 5 mg tablet Take 0.5 tablets by mouth once daily. (Patient not taking: Reported on 09/13/2023) No current facility-administered medications for this visit. Allergies As of Date: 09/13/2023 (No Known Allergies) Fully Assessed 09/13/2023 REVIEW OF SYSTEMS Abdomen: No bloating, early satiety, indigestion, or increased flatulence. No abdominal pain, nausea, vomiting, diarrhea, or constipation. Bladder: No dysuria, gross hematuria, urinary frequency, urinary urgency, or incontinence. Allergies and current medication updated:Yes EXAM: BP 132/78 Wt 214 lb (97.1kg) LMP 09/04/2023 GENERAL: pleasant, female in no apparent distress PELVIC: external genitalia normal, normal Bartholin's glands, urethra, Biehle's glands, no vulvar lesions, no cervical lesions, good vaginal support, physiologic discharge present, normal appearing perineal body and perianal region BIMANUAL: uterus normal size, shape and consistency, no adnexal masses, and boggy, mildly tender ASSESSMENT AND PLAN: Encounter Diagnosis ICD-10-CM 1. Menorrhagia with regular cycle N92.0 Adenomyosis- d/w her options. She is opposed to IUD and not interested in this at all. Not a good candidate for ablation due to pain and known adenomyosis. D/w her r/b/a to hysterectomy and that may not improve pain. Does not want hormones. D/w her could consider tranexamic acid. Desires to proced w/ EMB today and wants to consider other options. pap done as well today as hasn't been updated recently Would be TLH, bilateral salpingectomy and cystoscopy. Francisco Early MD Racheal is a 38 year old who presents today for an endometrial biopsy for abnormal uterine bleeding. test: negative UNIVERSAL PROTOCOL / SAFETY CHECKLIST Procedure to be Performed: EMB Sign In: A Moment of CARE was completed. Personnel directly involved with the procedure wore the appropriate PPE (Personal Protective Equipment). Patient/Surrogate Stated/Verified: PATIENT VERIFIED(optional for EMERGENT procedures): Patient name, Date of , Relevant allergies, and The intended procedure Time Out Communication: Intended patient and procedure match the source documents. Consent documented and matches the intended procedure. Relevant labs, photos, and/or imaging studies have been reviewed. No implant(s) inserted. Sign Out: SIGN OUT (optional for EMERGENT procedures): All specimen containers correctly labeled. All instruments, equipment, possible retained foreign bodies accounted for. Post-procedure follow-up management communicated and Plan of Care Visit completed when applicable. Francisco Early M.D. PROCEDURE: BIOPSY: Speculum placed into the vagina with excellent visualization of the cervix. Cervix cleaned with betadine. Anterior lip of cervix grasped with single toothed tenaculum. Uterus sounded to 9 cm. Pipelle inserted into the uterus without difficulty and endometrial biopsy obtained. Specimen labeled and sent to pathology. Procedure Summary: Patient tolerated procedure well. ASSESSMENT: abnormal uterine bleeding PLAN: Specimens labeled and sent to Pathology. Will notify patient of results in 1-2 weeks. Post-procedure instructions reviewed and written material given to the patient. Ok to leave message at given phone number for her to call us for results. Francisco Early MD [facility] 09-13-2023 History of Presen t illness Narrative Racheal Urban is a 38 year old female who presents for problem visit for f/u AUB. Last menses was heavy and crampy, last 2 before that were better. Didn't take the progestin- norethindrone b/c taking a natural progestin supplement. The 2nd day fo this last 5 day menses was the worst. Didn't take any medication. She states the pain is not the main concern last 3 months. More the heavy bleeding. 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 Social History Tobacco Use Smoking status: Never Smokeless tobacco: Never Vaping Use Vaping Use: Never used Substance Use Topics Alcohol use: Not Currently Drug use: Never Current Outpatient Medications Medication Sig norethindrone (AYGESTIN) 5 mg tablet Take 0.5 tablets by mouth once daily. (Patient not taking: Reported on 09/13/2023) No current facility-administered medications for this visit. Allergies As of Date: 09/13/2023 (No Known Allergies) Fully Assessed 09/13/2023 REVIEW OF SYSTEMS Abdomen: No bloating, early satiety, indigestion, or increased flatulence. No abdominal pain, nausea, vomiting, diarrhea, or constipation. Bladder: No dysuria, gross hematuria, urinary frequency, urinary urgency, or incontinence. Allergies and current medication updated:Yes EXAM: BP 132/78 Wt 214 lb (97.1kg) LMP 09/04/2023 GENERAL: pleasant, female in no apparent distress PELVIC: external genitalia normal, normal Bartholin's glands, urethra, Biehle's glands, no vulvar lesions, no cervical lesions, good vaginal support, physiologic discharge present, normal appearing perineal body and perianal region BIMANUAL: uterus normal size, shape and consistency, no adnexal masses, and boggy, mildly tender ASSESSMENT AND PLAN: Encounter Diagnosis ICD-10-CM 1. Menorrhagia with regular cycle N92.0 Adenomyosis- d/w her options. She is opposed to IUD and not interested in this at all. Not a good candidate for ablation due to pain and known adenomyosis. D/w her r/b/a to hysterectomy and that may not improve pain. Does not want hormones. D/w her could consider tranexamic acid. Desires to proced w/ EMB today and wants to consider other options. pap done as well today as hasn't been updated recently Would be TLH, bilateral salpingectomy and cystoscopy. Francisco Early MD Racheal is a 38 year old who presents today for an endometrial biopsy for abnormal uterine bleeding. test: negative UNIVERSAL PROTOCOL / SAFETY CHECKLIST Procedure to be Performed: EMB Sign In: A Moment of CARE was completed. Personnel directly involved with the procedure wore the appropriate PPE (Personal Protective Equipment). Patient/Surrogate Stated/Verified: PATIENT VERIFIED(optional for EMERGENT procedures): Patient name, Date of , Relevant allergies, and The intended procedure Time Out Communication: Intended patient and procedure match the source documents. Consent documented and matches the intended procedure. Relevant labs, photos, and/or imaging studies have been reviewed. No implant(s) inserted. Sign Out: SIGN OUT (optional for EMERGENT procedures): All specimen containers correctly labeled. All instruments, equipment, possible retained foreign bodies accounted for. Post-procedure follow-up management communicated and Plan of Care Visit completed when applicable. Francisco Early M.D. PROCEDURE: BIOPSY: Speculum placed into the vagina with excellent visualization of the cervix. Cervix cleaned with betadine. Anterior lip of cervix grasped with single toothed tenaculum. Uterus sounded to 9 cm. Pipelle inserted into the uterus without difficulty and endometrial biopsy obtained. Specimen labeled and sent to pathology. Procedure Summary: Patient tolerated procedure well. ASSESSMENT: abnormal uterine bleeding PLAN: Specimens labeled and sent to Pathology. Will notify patient of results in 1-2 weeks. Post-procedure instructions reviewed and written material given to the patient. Ok to leave message at given phone number for her to call us for results. Francisco Early MD documented in this encounter [facility] 08-18-2023 Note HNO ID: [id number] Author: FRANCISCO EARLY MD Service: ? Author Type: Physician Type: Progress Notes Filed: 08/18/2023 11:51 Note Text: Racheal Urban is a 38 year old female who presents for problem visit chronic pelvic pain for 2 year(s). HPI: Chronic pelvic pain which presented two years ago, pain occurs 1-2 weeks before period every month. Pain lasts first 2-3 days then improves. Uses Ibuprofen and magnesium cream to relieve pain with some relief. Pain is located in LLQ and radiating to left lower back. Describes pain as mix of shooting and aching pain, rated a 9/10 on worse day. Had a CT 2 years ago which found fibroid, ABD and Vaginal US 2 years ago was normal. , history of 3 sections. Worse days are right before she starts menses. Worse when sitting or lying down. Sometimes pain w/ intercourse. no pain w/ BM or urination. Has struggled w/ constipation, takes probiotics to help this. Has 2 small BMs a day. Had seen Dr. Horn's office in the past and had US there that we do not have access to at this time. Was told US was normal. no h/o abnormal pap smears. 3- cs and denies complications w/ those. OB History No obstetric history on file. 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 No pertinent family history. Social History Tobacco Use Smoking status: Never Smokeless tobacco: Never Vaping Use Vaping Use: Never used Substance Use Topics Alcohol use: Not Currently Drug use: Never No current outpatient medications on file. No current facility-administered medications for this visit. Allergies As of Date: 08/18/2023 (No Known Allergies) Fully Assessed 08/18/2023 REVIEW OF SYSTEMS Abdomen: No bloating, early satiety, indigestion, or increased flatulence. No abdominal pain, nausea, vomiting, diarrhea, or constipation. Bladder: No dysuria, gross hematuria, urinary frequency, urinary urgency, or incontinence. Breast: No breast lumps, nipple d/c, overlying skin changes, redness or skin retraction. Expanded ROS: N/A Allergies and current medication updated:N/A EXAM: BP 116/78 Wt 212 lb (96.2kg) LMP 08/08/2023 GENERAL: pleasant, female in no apparent distress HABDOMEN: soft, non-tender, no hernia, and no masses PELVIC: external genitalia normal, normal Bartholin's glands, urethra, Biehle's glands, no vulvar lesions, no cervical lesions, good vaginal support, physiologic discharge present, normal appearing perineal body and perianal region BIMANUAL: no adnexal masses, non-tender, and uterus is enlarged, boggy, minimally mobile. May be attached anterior abdominal wall. No tenderness on the right side, left adnexal tenderness but no masses noted. ASSESSMENT AND PLAN: Encounter Diagnosis ICD-10-CM 1. Pelvic pain in female R10.2 Suspect possible adenomyosis, she has an enlarged uterus, check pelvic ultrasound. She also has heavy menses, check endometrial biopsy. Discussed with her may have endometriosis, if we strongly suspect this then I would recommend that she see a specialist to discuss surgery. However I recommend starting with conservative options. Recommend starting with oral progestin therapy. Consider Mirena intrauterine system. Return after ultrasound for EMB and to see how she is doing on the norethindrone and make a further plan. Patient and her are comfortable with this plan and their questions were answered to their satisfaction. Francisco Early MD [facility] Evaluation note Diagnosis Chronic pelvic pain in female Unspecified symptom associated with female genital organs Menorrhagia with regular cycle Excessive or frequent menstruation [facility] Menorrhagia with regular cycle- Primary Excessive or frequent menstruation Special screening examination for human papillomavirus (HPV) Encounter for screening for malignant neoplasm of cervix Screening for malignant neoplasm of the cervix [facility] Diagnosis Postoperative pain- Primary Other acute postoperative pain Menorrhagia with regular cycle Excessive or frequent menstruation Chronic pelvic pain in female Unspecified symptom associated with female genital organs Adenomyosis Endometriosis of uterus documented in this encounter [facility] Summary Purpose Family History No Family History Records FoundNo Family History Records FoundNo Family History Records Found Advance Directives No Advanced Directives Records FoundNo Advanced Directives Records FoundNo Advanced Directives Records Found Additional Source Comments INFORMATION SOURCE (unrecogn ized section and content) DATE CREATED AUTHOR 07/27/2019 [facility] ([place]) DATE CREATED AUTHOR AUTHOR'S ORGANIZ ATION 03/16/2022 [facility] DATE CREATED AUTHOR AUTHOR'S ORGANIZ ATION 02/24/2024 [facility] Source Comments (unrecognize d section and content) In the event this informatio n is protected by the Federal Confidentiality of Alcohol and Drug Abuse Patient Records regulations: The Federal rules restrict any use of the information to criminally investigate or prosecute any alcohol or drug abuse patient.[facility] the event this information is protected by the Federal Confidentiality of Alcohol and Drug Abuse Patient Records regulations: The Federal rules restrict any use of the information to criminally investigate or prosecute any alcohol or drug abuse patient.[facility] the event this information is protected by the Federal Confidentiality of Alcohol and Drug Abuse Patient Records regulations: The Federal rules restrict any use of the information to criminally investigate or prosecute any alcohol or drug abuse patient.[facility] the event this information is protected by the Federal Confidentiality of Alcohol and Drug Abuse Patient Records regulations: The Federal rules restrict any use of the information to criminally investigate or prosecute any alcohol or drug abuse patient.[facility] the event this information is protected by the Federal Confidentiality of Alcohol and Drug Abuse Patient Records regulations: The Federal rules restrict any use of the information to criminally investigate or prosecute any alcohol or drug abuse patient.[facility] Reason for Visit (unrecogniz ed section and content) Reason Comments Pelvic Pain Specialty Diagnoses / Procedures Referred By Lissette t Referred To Contact [facility] Diagnoses Chronic pelvic pain in female Menorrhagia with regular cycle Procedures PELVIC US WHI US PELVIC NONOBSTETRIC REAL-TIME IMAGE COMPLETE Francisco Early MD [address] [place] [address] [facility] [address] [place] [address] Referral ID Status Reason Start Date Expiration Date V isits Requested Visits Authorized [id number] Closed Auto-Generat ed Referral Patient Cleared [facility] 08/18/2023 08/17/2024 1 0 Reason Comments Endometrial Biopsy Specialty Diagnoses / Procedures Referred By Lissette t Referred To Contact [facility] Diagnoses Menorrhagia with regular cycle Procedures ENDOMETRIAL BIOPSY ENDOMETRIAL BX W/WO ENDOCERVIX BX W/O DILAT SPX Francisco Early MD [address] [place] [address] [facility] [address] [place] [address] Referral ID Status Reason Start Date Expiration Date V isits Requested Visits Authorized [id number] Closed Auto-Generat ed Referral Patient Cleared [facility] 08/18/2023 08/17/2024 1 0 Reason Comments Results Reason Comments schedule procedure Reason Comments Pre-Op Visit Care Teams (unrecognized sec tion and content) Tabulating Machine Mechanic Relationship Specialty Start Date End Date Kiersten Morales CNP [address] [place] [address] Referring Family Medicine 07/26/23 Tabulating Machine Mechanic Relationship Specialty Start Date End Date Kiersten Morales CNP [address] [place] [address] Referring Family Medicine 07/26/23 Tabulating Machine Mechanic Relationship Specialty Start Date End Date Kiersten Morales CNP [address] [place] [address] Referring Family Medicine 07/26/23 Tabulating Machine Mechanic Relationship Specialty Start Date End Date Kiersten Morales CNP [address] [place] [address] Referring Family Medicine 07/26/23 FOR RECORDS PERTAINING TO PATIENTS WHO ARE OR HAVE BEEN ENROLLED IN A CHEMICAL DEPENDENCY/SUBSTANCEABUSE PROGRAM, SOME INFORMATION MAY BE OMITTED. This clinical summary was aggregated from multiple sources. Caution should be exercised in using it in the provision of clinical care. This summary normalizes information from multiple sources, and as a consequence, information in this document may materially change the coding, format and clinical context of patient data. In addition, data may be omitted in some cases. CLINICAL DECISIONS SHOULD BE BASED ON THE PRIMARY CLINICAL RECORDS. [facility] [employer] [facility]. provides no warranty or guarantee of the accuracy or completeness of information in this document.
[2024-03-10 06:09] LABS: Internal QC Validated? YES +Cl - CLEAR BKGD; Pregnancy, Urine Negative Negative
[2024-03-10] MEDS: Magnesium 1 GM over 15 mins IV (06:16)
[2024-03-10] MEDS: Lactated Ringers 1,000 ML 40 ML IV (06:17)
[2024-03-10] MEDS: Gabapentin 600 MG Tablet PO (06:18)
[2024-03-10] MEDS: Acetaminophen 500 MG Tablet 1000 MG PO ×2 (06:18→14:14)
[2024-03-10] MEDS: Celecoxib 200 MG Capsule 400 MG PO (06:18)
[2024-03-10] MEDS: Phenazopyridine 95 MG Tablet 190 MG PO (06:19)
[2024-03-10] MEDS: Enoxaparin 40 MG/0.4 ML Syringe SC (06:19)
[2024-03-10] MEDS: Scopolamine 1mg/72hr Patch 1 PATCH TD (06:26)
[2024-03-10 06:47] LABS: Absolute Lymphocyte Count 1.39 X10^3/uL (0.83-4.51); Absolute Neutrophil Count 3.5 X10^3/uL (2.0-7.7); Basophil# 0.04 X10^3/uL; Basophil% 0.7 % (0-1); Eosinophil# 0.07 X10^3/uL; Eosinophils% 1.3 % (0-5); Hematocrit 37.6 % (37-47); Hemoglobin 12.7 g/dL (12.0-15.0); Lymphocyte # 1.39 X10^3/ul (0.83-4.51); Lymphocyte % 25.5 % (19-41); Mean Corp Hgb Conc 33.8 g/dL (32-36); Mean Corpuscular Hgb 29.4 pg (27.0-32.0); Mean Platelet Vol. 9.8 fl (6.2-12.0); Monocyte# 0.47 X10^3/uL; Monocyte% 8.6 % (0-10); NRBC Flagged by Analyzer 0 % (0-5); Neutrophil # 3.46 X10^3/uL (2.7-7.7); Neutrophil % 63.5 % (47-70); Platelet Count 261 K/mm3 (150-450); RBC Distribution Width CV 12.2 % (11.6-14.6); RBC Distribution Width SD 39.2 fl (35.1-43.9); Red Blood Count 4.32 M/mm3 (4.2-5.4); White Blood Count 5.5 K/mm3 (4.4-11.0)
[2024-03-10 06:57] LABS: Anion Gap 3 (5-15); BUN 12 mg/dL (7-18); BUN/Creat Ratio 17.9 RATIO (10-20); Calcium,Total 8.9 mg/dL (8.5-10.1); Chloride 108 mmol/L (98-107); Creatinine, Serum 0.67 mg/dL (0.55-1.02); EST Glomerular Filtration Rate 103 mL/min (>60); Est Glom Filt Rate - Afr Amer 125 mL/min (>60); Estimated Creatinine Clearance 128.31 ml/min; Glucose 125 mg/dL (74-106); Potassium 3.3 mmol/L (3.5-5.1); Sodium Level 139 mmol/L (136-145)
--- NOTE | 2024-03-10 07:09 | PCM.PRE.AN2 ---
ASA Classification* ASA Classification ASA Classification: 2 Assessment & Plan Anesthesia* Anesthesia Assessment Anesthesia Assessment: Discussed sedation and/or anesthesia options, risks, benefits, and alternatives with patient/parents/legal guardian/POA. Questions invited. The patient/parents/legal guardian/POA seems to understand and agrees to proceed with anesthesia plan. Reviewed the physical assessment, medical history, allergy history and patient home medications list prior to surgery/procedure/anesthetic and documented any changes. Performed airway and anesthesia risk assessments. Anesthesia Type Anesthesia Type: General (see written pre anesthesia record for full assessment) Anesthesia Focused Assessment* Temperature: 97.8 F Pulse Rate: 89 Blood Pressure: 128/73 Respiratory Rate: 16 Pulse Ox: 100 Airway Assessment Mouth opens: >3 cm Mallampati Score: II Focused Labs Anesthesia Preop lab: CBC WBC 5.5 K/mm3 (4.4-11.0) 03/10/24 06:35 RBC 4.32 M/mm3 (4.2-5.4) 03/10/24 06:35 Hgb 12.7 g/dL (12.0-15.0) 03/10/24 06:35 Hct 37.6 % (37-47) 03/10/24 06:35 Plt Count 261 K/mm3 (150-450) 03/10/24 06:35 CHEMISTRY Potassium 3.3 mmol/L (3.5-5.1) L 03/10/24 06:35 Sodium 139 mmol/L (136-145) 03/10/24 06:35 Magnesium 2.0 mg/dL (1.6-2.6) 03/04/24 10:35 BUN 12 mg/dL (7-18) 03/10/24 06:35 Creatinine 0.67 mg/dL (0.55-1.02) 03/10/24 06:35 Glucose 125 mg/dL (74-106) H 03/10/24 06:35 COAG Urine Test Negative Negative 03/10/24 05:50 Pre-Assessment Diagnosis/Proposed Procedure Planned Operative Procedure(s): (B) ERAS, Hysterectomy,TLH, bilateral salpingectomy, cystoscopy Anesthesia History Anesthesia History - reordering clerk: Anesthesia History - reordering clerk Hx Hospitalization No 02/23/24 10:45 Any Problems With Anesthesia Yes: PONV 02/23/24 10:45 Cholinesterase deficiency No 02/23/24 10:45 You/Your Family Experience No 02/23/24 10:45 fever (hyperthermia) with Relationship Recent Exposure to Contagious No 03/10/24 06:14 Disease Does patient have nerve No 02/23/24 10:45 stimulator Patient instructed to have device shut off --Does patient have Pacemaker No 03/10/24 06:14 or ICD? When Was Last Pacemaker Check QUESTION #4 FULL TEXT: You/Your Family Experience fever (hyperthermia) with Anesthesia Last Oral Intake Last Oral intake: Last Oral Intake NPO since Meds taken in AM with sips of water? Meds patient instructed to take am of surgery PONV PONV - reordering clerk: PONV - reordering clerk Female Yes 02/23/24 10:45 HX of Motion Sickness Yes 02/23/24 10:45 HX of N/V After Surgery Yes 02/23/24 10:45 Non-Smoker Yes 02/23/24 10:45 Duration of Surgery greater Yes 02/23/24 10:45 than 60 minutes Number of Risk Factors 5 02/23/24 10:45 PONV Score Severe Risk 02/23/24 10:45 Height & Weight Height & Weight: Anesthesia: Height & Weight Height 5 ft 4 in 03/10/24 06:14 Weight: 100 kg 03/10/24 06:14 Body Mass Index (BMI) 37.8 03/10/24 06:14 Respiratory Assessment Respiratory Assessment - reordering clerk: Respiratory Tract Infection Hx - reordering clerk Hx Respiratory Tract Infection No 02/23/24 10:45 STOP Sleep Apnea STOP Sleep Apnea - reordering clerk: STOP Sleep Apnea - reordering clerk Hx Hypertension No 02/23/24 10:45 Hx Sleep Apnea No 02/23/24 10:45 CPAP BIPAP Do you snore loudly (louder No 02/23/24 10:45 than talking or can be heard Do you often feel tired/ No 02/23/24 10:45 fatigued/ sleepy during daytime? Has anyone observed you stop No 02/23/24 10:45 breathing during sleep? STOP Results Negative 02/23/24 10:45 QUESTION #5 FULL TEXT : Do you snore loudly (louder than talking or can be heard through closed doors)? Tobacco Use History Tobacco Use History - reordering clerk: Tobacco Use History - reordering clerk Tobacco Use Smoking Status Never smoker 02/23/24 10:45 Hx Tobacco Use No 02/23/24 10:45 Years Smoking Packs Smoked per Day Smoking Cessation Date was within the last 15 years Hx Smoking Cessation Date Hx Smoking Cessation Counseling Hematologic Medial History Hematologic Hx - reordering clerk: Hematologic Medical Hx - documentation billing clerk Hx of Blood Transfusion No 02/23/24 10:45 Hx of Transfusion in last 3 No 02/23/24 10:45 Months Date of Last Transfusion (if within last 3 months) Ever experience any problems No 02/23/24 10:45 with transfusion(s)? Specify any problems Hx of Preganancy in last 3 N/A 02/23/24 10:45 Months Nurse Filling Out Transfusion NBUCHER 02/23/24 10:45 & Questions: Date: 02/23/24 02/23/24 10:45 Time: 10:47 02/23/24 10:45 Patient unable to answer at this time (ie. confused, unrespo /Reproduction History /Reproductive History - reordering clerk: /Reproductive Hx- reordering clerk Hx Now No 02/23/24 10:45 Gestational Age (in weeks): EDC: Hx Hx Para Hx Section SAB No 02/23/24 10:45 Active Medications Active Medications: Current Medications Generic Name Dose Route Start Last Admin Trade Name Freq PRN Reason Stop Dose Admin Acetaminophen 1,000 mg 03/10/24 07:30 03/10/24 06:18 Acetaminophen 500 Mg Tablet PO 03/10/24 07:31 1,000 mg PREOP ONE Administration Celecoxib 400 mg 03/10/24 07:30 03/10/24 06:18 Celecoxib 200 Mg Capsule PO 03/10/24 07:31 400 mg X1 ONE Administration Dexamethasone Sodium Phosphate 8 mg 03/10/24 07:30 Dexamethasone 4 Mg/Ml Vial IV 03/10/24 07:31 X1 ONE Enoxaparin Sodium 40 mg 03/10/24 07:30 03/10/24 06:19 Enoxaparin 40 Mg/0.4 Ml Syringe SC 03/10/24 07:31 40 mg X1 ONE Administration Gabapentin 600 mg 03/10/24 07:30 03/10/24 06:18 Gabapentin 600 Mg Tablet PO 03/10/24 07:31 600 mg PREOP ONE Administration Lactated Ringer's 1,000 mls @ 40 mls/hr 03/10/24 07:30 03/10/24 06:17 IV 40 mls/hr .Q25H CHANA Administration Lactated Ringer's 1,000 mls @ 70 mls/hr 03/10/24 07:30 IV .[id number] CHANA Cefazolin Sodium 2 gm/ N/A 20 mls @ 400 mls/hr 03/10/24 07:30 IV 03/10/24 07:32 PREOP ONE Insulin Human Lispro 0 unit 03/10/24 07:30 Insulin Lispro 100 Unit/Ml Insuln.Pen SC Q4H PRN PRN BG >/= 180, SEE PROTOCOL Protocol Ondansetron HCl 4 mg 03/10/24 07:30 Ondansetron 4 Mg/2 Ml Vial IV 03/10/24 07:31 X1 ONE Phenazopyridine HCl 190 mg 03/10/24 07:30 03/10/24 06:19 Phenazopyridine 95 Mg Tablet PO 03/10/24 07:31 190 mg X1 ONE Administration Scopolamine HBr 1 patch 03/10/24 06:30 03/10/24 06:26 Scopolamine 1mg/72hr Patch TD 1 patch Q3D CHANA Administration PFSH Medical History Wears glasses Low iron Leg cramps History of edema Non-smoker Hypoglycemia PONV (postoperative nausea and vomiting) Home Medications ?Medication ?Instructions ?Recorded ?Last Taken ?Type NK 03/10/24 Unknown History Allergy/AdvReac Type Severity Reaction Status Date / Time No Known Allergies Allergy Verified 03/10/24 06:13 Surgical History History of Social History Smoking Status: Never smoker Review of Systems (Anesthesia) ROS Narrative System reviewed and no additional complaints, except as documented.
--- NOTE | 2024-03-10 07:30 | HYST_PTH ---
PATHOLOGY RESULTS PATIENT: RACHEAL URBAN LOC: [facility] U#:[id number] AGE/SX: 39/F ROOM: RE03/10/[address]: Dr. Vero Gill MD : 1985 BED: DIS: 03/10/2024 SPEC #: [id number] RECD: 03/10/24 10:28 STATUS: PROSPER RERissa #: [id number] BYRON: 03/10/24 07:[address]: Vero Gill DEPT: SURGICAL PATHOLOGY RECD BY: Agnieszka Foster ENTERED: 03/10/24 12:21 SP TYPE: HYSTERECT OTHR DR: Kiersten Morales, [place] Tissues: Uterus, NOS Procedures: Surgery Specimen Level V HEADER OPERATION: Hysterectomy, bilateral salpingectomy, cystoscopy PRE-OP DIAGNOSIS: Pelvic pain, adenomyosis, menorrhagia with regular cycle TISSUE SUBMITTED: Bilateral fallopian tubes, cervix, uterus MICROSCOPIC DIAGNOSIS Uterus, hysterectomy: Cervix - Focal squamous metaplasia. Endometrium - Weakly proliferative endometrium Myometrium - Leiomyomas and superficial adenomyosis. Right and left fallopian tube - Complete segment of fallopian tube with paratubal cyst. AM: 03/13/2024 MICROSCOPIC DESCRIPTION Slides are reviewed. GROSS DESCRIPTION Received in fixative is one container labeled with the patient's name and designated bilateral fallopian tubes, cervix, uterus. The specimen consists of a hysterectomy specimen consisting of previously partially opened uterus with cervix and detached bilateral fallopian tubes. The uterus with cervix weighs 140 gm and measures 12.0 x 9.0 x 7.0 cm. The serosal surface is smooth. The ectocervical mucosa is unremarkable. The shape of external os can not be determined, the specimen was previously opened. The endocervical canal measures 4.0 cm in length and the endocervical mucosa is lawton glistening and unremarkable. The triangular endometrial cavity measures 5.0 cm in length and 3.0 cm in width. The endometrium is lawton, glistening without any mass lesions and measures 0.1 cm in thickness. Endometrium is partially denuded from the underlying myometrium. Section of the uterine wall reveal three nodular masses. Largest mass measuring 0.5cm in greatest dimension. Uterine wall measures up to 3.5cm in greatest dimension. Section of the uterine wall also reveal trabeculated cut surfaces suspicious for adenomyosis. Detached fallopian tubes are not identified as right or left and measures 4.5cm in length and 0.7cm in diameter and 5.5cm in length and 0.5cm in diameter. Fimbrial ends are identified. Sections reveal unremarkable cut surfaces. Sterile Processing Manager sections are submitted in nine cassettes as follows: 1 - anterior cervix, 2 - posterior cervix, 3 & 4 - anterior uterine wall, 5 & 6 - posterior uterine wall, 7- nodular masses, entirely submitted, 8- one fallopian tube, 9- second fallopian tube JOSSE: 03/10/2024 TC:1 CPT: 79088
[2024-03-10] MEDS: Cefazolin 2 GM in Syringe IV (07:47)
[2024-03-10] MEDS: dexAMETHasone 4 MG/ML Vial 8 MG IV (08:00)
[2024-03-10 09:50] LABS: Bedside Glucose 138 mg/dL (74-106)
[2024-03-10] MEDS: Bupivacaine Mpf 0.5% 30 ML VIAL (09:54)
--- NOTE | 2024-03-10 09:56 | PCM.DC ---
Discharge Instructions Diet Discharge Diet: No restrictions Activity Discharge Activity: May Shower and May Take a Tub Bath (in 6 weeks) May resume sexual activity in: 6-8 weeks and - (Nothing in your vagina for 6 weeks. No vaginal or anal intercourse for 6-8 weeks) Lifting Restrictions: 15 lbs for 6 weeks Additional Activity Instructions:: Take 1000 mg of acetaminophen every 8 hours and your ibuprofen every 8 hours to control pain and take the oxycodone 1/2 to one tablet every 8 hours for breakthrough pain Dressing / Incision Call your doctor if your incision/area has: Continuous Slow Oozing, Sudden Increased Bleeding and Foul Smelling Discharge Call your doctor if you observe: Fever of 101 or Higher, Inability to urinate, Inability to have a bowel movement, Using more than 1 pad per hour and Uncontrolled pain Remove Dressing in: leave until fall off (the skin glue can get wet) Cleanse incision/area with: Soap & Water and - (Your incisions have skin glue, it can get wet, leave the glue on until it falls off. ) Follow Up Care Please Follow Up With: Vero Gill MD When: With my office in 1-2 and 6 weeks or as needed. [phone] Test Results: Test results from this visit will be discussed in further detail at your follow-up appointment, if applicable. Discharge Plan Admission Primary Reason for Your Visit: Laparoscopic hysterectomy Attending Provider: Vero Gill Primary Care Provider: Kiersten Morales NP Instructions Print Language: [place] Discharge Orders/Prescriptions Prescriptions: New ibuprofen 600 mg tablet 600 mg PO Q6H PRN (Reason: Pain) 20 Days Qty: 60 1RF oxycodone 5 mg tablet 5 mg PO Q8H PRN (Reason: severe pain) 7 Days Qty: 10 0RF No Action NK Disposition Disposition (needs filled in before D/C Order can be placed): Home, Self Care
--- NOTE | 2024-03-10 10:02 | PCM.OPRPT ---
Problems Associated Problem List Diagnoses (1) Menorrhagia with regular cycle: (2) Adenomyosis: (3) Pelvic pain: Report of Operation Date of Procedure: 03/10/24 Pre-Operative Diagnosis: adenomyosis, aUB, pelvic pain Post-Operative Diagnosis: same Surgery/Procedure Performed:: TLH, bilateral salpingectomy and cystoscopy Surgeon: Vero Gill wet cotton feeder: Yohana Dowling wet cotton feeder: Lisa Ballesteros MS4 Type of Anesthesia: General Anesthesiologist: Mona Govea Special Medications: none Specimen's removed: uterus, cervix, bilateral fallopian tubes Drains: none Estimated Blood Loss (mL): 20 Fluids Replaced: 800 Description of Procedure: The patient was taken to the operating room where she was prepped and draped in the dorsal lithotomy position. Her arms were tucked to the side and padded and her legs were placed in the yellowfin stirrups. Care was taken to ensure that she was placed in a neurologically safe and neutral position. The purple pad and purple arm wraps were used to pad the arms. A weighted speculum was placed in the vagina and the anterior lip of the cervix was grasped with a single-tooth tenaculum. The cervix sounded to 11 centimeters. 2-0 Vicryl sutures were secured to the cervix at 3 and 9:00. The 3 cm uterine vocational rehabilitation consultant was placed into the cervix and the balloon inflated. The stay sutures were placed through the cup and secured down to the cervix. Once the vocational rehabilitation consultant was secured to the cervix the Smith catheter was placed to straight drain. Attention was turned to the abdominal portion of the case. Before skin incisions were made they were infiltrated with 0.5% Marcaine solution for local anesthetic. A 5 mm intraumbilical incision was made and while tenting the anterior abdominal wall up with towel clamps a 5 mm blade less trocar and sleeve were advanced directly into the peritoneal cavity using the visible. Peritoneal placement was confirmed with the laparoscope the pneumoperitoneum was created, and the underlying abdominal contents were intact. The patient was placed in Trendelenburg and the above findings were noted. Right and left lateral 5 mm trochars were placed under direct visualization without difficulty. The antimesenteric portion of the tube was clamped sealed and transected serially on both sides with the LigaSure device. The round ligaments were clamped sealed and transected and a window was made in the peritoneum. The utero-ovarian ligaments were then clamped sealed and transected with the LigaSure device and the pedicles were hemostatic The bladder flap was dissected down with the LigaSure device and blunt dissection and the uterine arteries were then skeletonized. The uterine arteries were clamped sealed and transected on both sides with the LigaSure device. Then along the cardinal ligament uterine arteries adjacent to the cervix were clamped sealed and transected with the LigaSure device to move them away from the vaginal cuff angle. At this point the pedicles were all examined and found to be hemostatic. The bladder flap was rechecked and found to be adequately down. The monopolar hook was used to enter the anterior vagina. The vaginal manipulator cup was noted in the vaginal colpotomy incision was made circumferentially around the cup. When the 3 and 9:00 positions of the cervicovaginal junction were reached these were clamped sealed and transected with the LigaSure device to secure any small remaining vessels. At this point the pedicles were hemostatic from above and attention was turned to the vaginal portion of the case again. The uterus was able to easily be delivered so the cervix and lower uterine segment were bivalved and one half of the cervix patch pushed back up into the peritoneal cavity and then the uterus was able to be delivered. It was left intact it was just bivalved. Vaginal angle sutures were placed on both sides with 0 Vicryl sutures and care was taken to ensure that the uterosacral ligament was secured into this stitch. The remainder the vagina was then closed horizontally with interrupted 0 Vicryl sutures. The cuff was hemostatic vaginally. The Smith catheter was removed and a cystoscopy was performed. The bladder appeared normal and was intact. Both ureteral orifices were noted and both ureteral jets were seen. The cystoscope was removed and the Smith catheter was placed back to straight drain. A sponge stick was placed in the vagina to help place traction against the vaginal cuff and the pneumoperitoneum was re-created. The suction supervisor detasseling crew was used to remove any blood. The pedicles were reexamined and found to be hemostatic. The vaginal cuff was hemostatic. Some Hemablast was placed over the cuff and the pedicles and no active bleeding was noted through the Hemablast. The right and left lateral ports were taken out and the sites were hemostatic. The pneumoperitoneum was released and even under low pressure there was no bleeding of any of the pedicles are vaginal cuff. The umbilical port was removed. The umbilical skin incisions were closed with Monocryl suture and skin glue by Dr. Lam. The vaginal instruments were removed by me and a vaginal sweep was completed by me. Dr. Lam provided tissue manipulation, assistance with hemostasis and transection of pedicles on her side, and closure of the skin. The student help with closure of the skin and uterine and tissue manipulation. The surgery was performed by me with assistance other than the portions dictated as above. There were no qualified residents available for this procedure. All sponge lap and needle counts were correct and the patient was transferred to the recovery room in stable condition. Grafts/Implants Used: none Procedure Start Time: 07:58 Procedure Stop Time: 09:55 Complications none
--- NOTE | 2024-03-10 10:14 | PCM.POST.ANE ---
Anesthesia: Postop Eval I Current Vital Signs Temperature: 98.6 F Pulse Rate: 89 Blood Pressure: 116/74 Respiratory Rate: 16 Pulse Ox: 97 Oxygen Delivery Method: Nasal Cannula Oxygen Flow Rate (L/min): 4 Assessment Airway patent: Yes Spontaneous unlabored respirations: Yes Mental status: Asleep nausea: No Vomiting: No Anesthesia Complication: No Fluid Hydration Crystalloid volume administer (ml): 800 Total IV fluid infused: 800 Progress Note Anesthesia document: Postop Eval 1 completed: Yes
[2024-03-10] MEDS: Ondansetron 4 MG/2 ML Vial IV (10:23)
--- NOTE | 2024-03-10 10:23 | POSTOPAN2_ITS ---
Anesthesia Postop Eval I Sum Postop Eval Completion status Anesthesia document: Postop Eval 1 completed: Yes Anesthesia Postop Eval I Summary Anesthesia Postop Eval I Summary: Anesthesia Postop Eval I: Assessment Summary Airway patent Yes 03/10/24 10:16 [email or web address] Spontaneous unlabored Yes 03/10/24 10:16 [email or web address] respirations Mental status Asleep 03/10/24 10:16 [email or web address] nausea No 03/10/24 10:16 [email or web address] Vomiting No 03/10/24 10:16 [email or web address] Anesthesia Postop Eval I: Fluid Summary Crystalloid volume administer 800 03/10/24 10:16 [email or web address] (ml) Colloids volume administered ( ml) Blood Product volume administered (ml) Total IV fluid infused 800 03/10/24 10:16 [email or web address] Anesthesia Postop Eval I: Summary Notes Anesthesia Complication No 03/10/24 10:16 [email or web address] Anesthesia Complication Comment: Post-operative progress note Anesthesia: Postop Eval II Evaluation Mental status: Awake Pain Level: 0 nausea: No Vomiting: No
--- NOTE | 2024-03-10 10:23 | PCM.POSTANE2 ---
Anesthesia Postop Eval I Sum Postop Eval Completion status Anesthesia document: Postop Eval 1 completed: Yes Anesthesia Postop Eval I Summary Anesthesia Postop Eval I Summary: Anesthesia Postop Eval I: Assessment Summary Airway patent Yes 03/10/24 10:16 [email or web address] Spontaneous unlabored Yes 03/10/24 10:16 [email or web address] respirations Mental status Asleep 03/10/24 10:16 [email or web address] nausea No 03/10/24 10:16 [email or web address] Vomiting No 03/10/24 10:16 [email or web address] Anesthesia Postop Eval I: Fluid Summary Crystalloid volume administer 800 03/10/24 10:16 [email or web address] (ml) Colloids volume administered ( ml) Blood Product volume administered (ml) Total IV fluid infused 800 03/10/24 10:16 [email or web address] Anesthesia Postop Eval I: Summary Notes Anesthesia Complication No 03/10/24 10:16 [email or web address] Anesthesia Complication Comment: Post-operative progress note Anesthesia: Postop Eval II Evaluation Mental status: Awake Pain Level: 0 nausea: No Vomiting: No
[2024-03-10] MEDS: Lactated Ringers @ 70 MLS/HR 70 ML IV (10:34)
== END 2024-03-10 16:18 | disposition home or self-care (01) ==
LOC: SDC 05:36 → AC 05:36
PROVIDERS: Anesthesiology; PCP Nurse Practitioner Family; Referring Provider Obstetrics & Gynecology; Visit Provider Obstetrics & Gynecology
PROC: 0UT94ZZ Resection of Uterus, Percutaneous Endoscopic Approach (ICD-10-PCS; CPT 58571; principal; 2024-03-10 07:10)
DX: N92.0 Excessive and frequent menstruation with regular cycle (principal); N80.03 Adenomyosis of the uterus; R10.2 Pelvic and perineal pain; N93.9 Abnormal uterine and vaginal bleeding, unspecified; N83.8 Other noninflammatory disorders of ovary, fallopian tube and broad ligament; D25.9 Leiomyoma of uterus, unspecified
CPT/HCPCS: 58571; 00840; 36415; 80048; 81025; 82962; 83735; 85025; 86850; 86900; 86901; 88307; J7120; J2405; J3475; J3490